=== PATIENT | female | born 1950 | race Caucasian/White ===

== ENCOUNTER 2020-01-13 04:21 | Emergency (ER) | payer MEDICARE, OTHER ==
[~2020-01-13] VITALS: Ht 154.9 cm; Wt 90.7 kg
--- OUTSIDE RECORDS SUMMARY | ~2020-01-13 | XMS | Encounter Summary ---
Demographics + + + | Address | [address] | | | [place] [address] | + + + | Home Phone | | + + + | Preferred Language | Unknown | + + + | Marital Status | | + + + | Islam Affiliation | 1077 | + + + | Race | Unknown | + + + | Ethnic Group | Unknown | + + + Author + + + | Author | [facility] | | | and Jimmyana | + + + | Organization | [facility] | | | and Jimmyana | + + + | Address | Unknown | + + + | Phone | Unavailable | + + + Support + + + + + | Name | Relationship | Address | Phone | + + + + + | Elen Brown | ECON | [address] | | | | | [place], [place] | | | | | [address] | | + + + + + | Hang Miller | ECON | [address] | | | | | [place], [place] | | | | | [address] | | + + + + + Care Team Providers + +------+ + | Care Full Roll Inspector Name | Role | Phone | + +------+ + PCP | Unavailable | + +------+ + Reason for Visit +---------+--------+ + | Reason | Onset | Comments | | | Date | | +---------+--------+ + | Results | 04/16/ | | | | 2012 | | +---------+--------+ + Encounter Details +--------+ + + + + | Date | Type | Department | Care Team | Description | +--------+ + + + + | 04/16/ | Telephone | [facility] | Bo Darling MD | Results | | 2012 | | GASTROENTEROLOGY | [address] [place] | | | | | [address] [place] | [address] [place] | | | | | [address] [place] | [address] | | | | | [address] | | | | | | [phone] | | | +--------+ + + + + Social History + +-------+ +--------+------+ | Tobacco Use | Types | Packs/Day | Years | Date | | | | | Used | | + +-------+ +--------+------+ | Never Assessed | | | | | + +-------+ +--------+------+ + + + | Sex Assigned at | Date Recorded | | | | + + + | Not on file | | + + + documented as of this encounter Miscellaneous Notes Telephone Encounter - Chikis Plummer RN - 04/16/2013 3:33 PM PDTNotified patient th at pathology on colon polyp negative. Dr Darling recommends next colonoscopy in 5 years. She reports she did well after the colonoscopy. documented in th is encounter Plan of Treatment Not on filedocumented as of this encounter Visit Diagnoses Not on filedocumented in this encounter"
--- OUTSIDE RECORDS SUMMARY | ~2020-01-13 | XMS | Encounter Summary ---
Demographics + + + | Address | [address] | | | [place] [address] | + + + | Home Phone | | + + + | Preferred Language | Unknown | + + + | Marital Status | | + + + | Jew Affiliation | 1077 | + + + | Race | Unknown | + + + | Ethnic Group | Unknown | + + + Author + + + | Author | [facility] | | | and Jimmyana | + + + | Organization | [facility] Go | | | and [...] [place], [place] | | | | | [address] | | + + + + + | Hang Miller | ECON | [address] | | | | | [place], [place] | | | | | [address] | | + + + + + Care Team Providers + +------+ + | Care Hoop Riveter Name | Role | Phone | + +------+ + PCP | Unavailable | + +------+ + Reason for Visit + +--------+ + | Reason | Onset | Comments | | | Date | | + +--------+ + | Colonoscopy | 02/19/ | | | | 2012 | | + +--------+ + Encounter Details +--------+ + + + + | Date | Type | Department | Care Team | Description | +--------+ + + + + | 02/19/ | Telephone | [facility] | Bo Darling MD | Colonoscopy | | 2012 | | GASTROENTEROLOGY | [address] [place] | | | | | [address] [facility] | [address] [place], [place] | | | | | [address] [place], [place] | [address] | | | | | [address] | | | | | | [phone] | | | +--------+ + + + [...] Telephone Encounter - Chikis Plummer RN - 02/19/2013 4:06 PM PDTColonoscopy is sche duled for 04/11/13 check in 0800. Prep order sent to [facility] [employer]. Mailed prep instructions and pt questionnaire. TTelephone Encounter - Deb Gallo - 02/19/2013 3:18 PM PDTPatient's Jorge A called i n to speak with Reji, please give him a call back on the home number. He has some Colonosco py questions for her. documen henry in this encounter Plan of Treatment Not on filedocumented as of this encounter Visit Diagnoses Not on filedocumented in this encounter"
--- OUTSIDE RECORDS SUMMARY | ~2020-01-13 | XMS | Encounter Summary ---
Demographics + + + | Address | [address] | | | [place] [address] | + + + | Home Phone | | + + + | Preferred Language | Unknown | + + + | Marital Status | | + + + | Mandaen Affiliation | 1077 | + + + | Race | Unknown | + + + | Ethnic Group | Unknown | + + + Author + + + | Author | [facility] | | | and Jimmyana | + + + | Organization | [facility] | | | and Jimmyana | [...] [place], [place] | | | | | [address] | | + + + + + | Hang Miller | ECON | [address] | | | | | [place], [place] | | | | | [address] | | + + + + + Care Team Providers + +------+ + | Care Clinical Unit Coordinator Name | Role | Phone | + +------+ + PCP | Unavailable | + +------+ + Reason for Visit + +--------+ + | Reason | Onset | Comments | | | Date | | + +--------+ + | Colonoscopy | 02/13/ | | | | 2012 | | + +--------+ + Encounter Details +--------+ + + + + | Date | Type | Department | Care Team | Description | +--------+ + + + + | 02/13/ | Telephone | [facility] | Bo Darling MD | Colonoscopy | | 2012 | | GASTROENTEROLOGY | [address], [place] | | | | | [address] [facility] | [address] [place], [place] | | | | | [address] [place], [place] | [address] | | | | | [address] | | | | | | [phone] | | | +--------+ + + + [...] Telephone Encounter - Chikis Plummer RN - 02/13/2013 10:34 AM PDTLeft message offeri ng colonoscopy only. Records here from [facility]. Screening, regular sedation. Any provid er. 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 documented in this encounter Plan of Treatment Not on filedocumented as of this encounter Visit Diagnoses Not on filedocumented in this encounter"
--- OUTSIDE RECORDS SUMMARY | ~2020-01-13 | XMS | Encounter Summary ---
Demographics + + + | Address | [address] | | | [place] [address] | + + + | Home Phone | | + + + | Preferred Language | Unknown | + + + | Marital Status | | + + + | Christian Affiliation | 1077 | + + + | Race | Unknown | + + + | Ethnic Group | Unknown | + + + Author + + + | Author | [facility] | | | and Jimmyana | + + + | Organization | [facility] | | | and Jimmyana | [...] [place], [place] | | | | | [address] | | + + + + + | Hang Miller | ECON | [address] | | | | | [place], [place] | | | | | [address] | | + + + + + Care Team Providers + +------+ + | Care Complementary Health Therapists Name | Role | Phone | + +------+ + PCP | Unavailable | + +------+ + Encounter Details +--------+ + + + + | Date | Type | Department | Care Team | Description | +--------+ + + + + | 05/08/ | Hospital | [facility] | Edgard Mckee, | | | 1997 - | Encounter | MED CTR MED ONC | [address] [facility] | | | | | [address] [place] | [place] | | | 05/12/ | | [place] [address] | [address] | | | 1997 | | [phone] | | | +--------+ + + + [...] + + documented as of this encounter Plan of Treatment Not on filedocumented as of this encounter Visit Diagnoses Not on filedocumented in this encounter"
--- OUTSIDE RECORDS SUMMARY | ~2020-01-13 | XMS | Encounter Summary ---
Demographics + + + | Address | [address] | | | [place] [address] | + + + | Home Phone | | + + + | Preferred Language | Unknown | + + + | Marital Status | | + + + | Holiness Affiliation | 1077 | + + + | Race | Unknown | + + + | Ethnic Group | Unknown | + + + Author + + + | Author | [facility] | | | and Jimmyana | + + + | Organization | [facility] | | | and Jimmyana | [...] [place], [place] | | | | | [address] | | + + + + + | Hang Miller | ECON | [address] | | | | | [place], [place] | | | | | [address] | | + + + + + Care Team Providers + +------+ + | Care Radiological Technologist Name | Role | Phone | + +------+ + PCP | Unavailable | + +------+ + Reason for Referral Evaluate & Treat (Routine) +--------+ + + + + + | Status | Reason | Specialty | Diagnoses / | Referred By | Referred To | | | | | Procedures | Contact | Contact | +--------+ + + + + + | Closed | Specialty | Gastroenterol | Diagnoses | Harri, | Harri, | | | Services | ogy | Special | Bo Reynoso MD | Bo Reynoso MD | | | Required | | screening | [address], | | | | | for | [place], [place] | [place] [address] | | | | | malignant | [address] [place] | [place], | | | | | neoplasms, | [place], [place] | [place] [address] | | | | | colon | [address] | Phone: | | | | | Procedures | Phone: | [phone] | | | | | [place] | [phone] | Fax: | | | | | COLONOSCOPY, | Fax: | [phone] | | | | | DIAGNOSTIC | [phone] | | | | | | [place] | | | | | | | COLONOSCOPY, | | | | | | | BIOPSY [place] | | | | | | | COLONOSCOPY, | | | | | | | REMV | | | | | | | NIC TANG | | | +--------+ + + + + + Reason for Visit + +--------+ + [...] + + | 02/13/ | Telephone | [facility] | Bo Darling MD | Colonoscopy | | 2012 | | GASTROENTEROLOGY | [address], [place] | | | | | [address] [place] | [address] [place] | | | | | [address] [place] | [address] | | | | | [address] | | | | | | [phone] | | | +--------+ + + + [...] Telephone Encounter - Chikis Plummer RN - 02/15/2013 1:48 PM PDTSpoke with patient and scheduled colonoscopy for 04/11/13 per her request. Uses [facility] in [place]. Erlin nixon lew prachi. Has provideile insurance.Electronically signed by Chikis Plummer RN at 2:18 PM PDTTelephone Encounter - Long Galan - 02/13/2013 3:15 PM PDTPatien t returned Reji' call regarding scheduling procedure. Patient will be available today after 4:30pm. It is also okay to schedule with patient's because he knows her work lorri le. documented in this e ncounter Plan of Treatment + + +--------+ + + | Name | Type | Priori | Associated Diagnoses | Order Schedule | | | | ty | | | + + +--------+ + + | Ambulatory referral | Outpatient | Routin | Special screening | Expected: | | to Gastroenterology | Referral | e | for malignant | 04/11/2013, Expires: | | | | | neoplasms, colon | 02/15/2014 | + + +--------+ + + documented as of this encounter Visit Diagnoses + + | Diagnosis | + + | Special screening for malignant neoplasms, colon - Primary | + + documented in this encounter"
--- OUTSIDE RECORDS SUMMARY | ~2020-01-13 | XMS | Clinical Summary ---
Demographics + + + | Address | [address] | | | [place] [address] | + + + | Home Phone | | + + + | Preferred Language | Unknown | + + + | Marital Status | | + + + | Advent Affiliation | 1077 | + + + | Race | Unknown | + + + | Ethnic Group | Unknown | + + + Author + + + | Author | [facility] | | | and Jimmyana | + + + | Organization | [facility] | | | and Jimmyana | + + + | Address | Unknown | + + + | Phone | Unavailable | + + + Support + + + + + | Name | Relationship | Address | Phone | + + + + + | Elen Brown | ECON | [address] | | | | | [place], [place] | | | | | [address] | | + + + + + | Hang Miller | ECON | [address] | | | | | [place], [place] | | | | | [address] | | + + + + + Care Team Providers + +------+ + | Care Site Physician Name | Role | Phone | + +------+ + PCP | Unavailable | + +------+ + Allergies Not on File Medications Not on file Active Problems Not on file Social History + +-------+ +--------+------+ | Tobacco [...] on file | | + + + Last Filed Vital Signs Not on file Plan of Treatment + + +-------+ + | Health Maintenance | Due Date | Last | Comments | | | | Done | | + + +-------+ + | Vaccine: | | | | | Dtap/Tdap/Td (1 - | 9 | | | | Tdap) | | | | + + +-------+ + | Vaccine: Zoster (1 | | | | | of 2) | 0 | | | + + +-------+ + | Breast Cancer | | | | | Screening | 5 | | | + + +-------+ + | Vaccine: | | | | | Pneumococcal 65+ (1 | 5 | | | | of 1 - PPSV23) | | | | + + +-------+ + | Vaccine: Influenza | | | | | (#1) | 0 | | | + + +-------+ + Results Not on filefrom Last 3 Months Insurance + +--------+ +--------+ +---------+------+ | Payer | Benefi | Subscriber | Effect | Phone | Address | Type | | | t Plan | ID | loyd | | | | | | / | | Dates | | | | | | Group | | | | | | + +--------+ +--------+ +---------+------+ | [facility] [employer] | PHP | [id number] | 09/18/19 | [phone] | | PPO | | PLAN | PEBB | | 11-Pre | 5 | | | | | PROV | | sent | | | | | | CHOICE | | | | | | + +--------+ +--------+ +---------+------+ + +--------+ +--------+ + + | Guarantor Name | Accoun | Relation to | Date | Phone | Billing Address | | | t Type | Patient | of | | | | | | | | | | + +--------+ +--------+ + + | Des Miller | Person | Self | [birth year] | [address] | | | al/Fam | | 1950 | [phone] | [place] [address] | | | brody | | | 1 (Home) | | + +--------+ +--------+ + + Advance Directives + + + + + | Type | Date Recorded | Patient | Explanation | | | | Steel Cutter | | + + + + + | Power of | | | | | Vocational Rehabilitation Technician | | | | + + + + + | Advance | | | | | Directive | | | | + + + + +"
--- OUTSIDE RECORDS SUMMARY | ~2020-01-13 | XMS | Encounter Summary ---
Demographics + + + | Address | [address] | | | [place] [address] | + + + | Home Phone | | + + + | Preferred Language | Unknown | + + + | Marital Status | | + + + | Muslim Affiliation | 1077 | + + + | Race | Unknown | + + + | Ethnic Group | Unknown | + + + Author + + + | Author | [facility] | | | and Jimmyana | + + + | Organization | [facility] | | | and [...] [place], [place] | | | | | [address] | | + + + + + | Hang Miller | ECON | [address] | | | | | [place], [place] | | | | | [address] | | + + + + + Care Team Providers + +------+ + | Care Building Wrecker Name | Role | Phone | + [...] + + | 02/19/ | Telephone | [facility] | Bo Darling MD | Colonoscopy | | 2012 | | GASTROENTEROLOGY | [address], [place] | | | | | [address] [facility] | [address] [place], [place] | | | | | [address] [place], [place] | [address] | | | | | [address] | | | | | | [phone] | | | +--------+ + + + [...] Encounter - Chikis Plummer RN - 02/19/2013 3:12 PM PDTSpoke with spouse. He will have pt call to schedule colonoscopy. documented in this encounter Plan of Treatment Not on filedocumented as of this encounter Visit Diagnoses Not on filedocumented in this encounter"
--- OUTSIDE RECORDS SUMMARY | ~2020-01-13 | XMS | Encounter Summary ---
Demographics + + + | Address | [address] | | | [place] [address] | + + + | Home Phone | | + + + | Preferred Language | Unknown | + + + | Marital Status | | + + + | Zoroastrianism Affiliation | 1077 | + + + | Race | Unknown | + + + | Ethnic Group | Unknown | + + + Author + + + | Author | [facility] | | | and Jimmyana | + + + | Organization | [facility] | | | and Jimmyana [...] [place], [place] | | | | | [address] | | + + + + + | Hang Quintanilla | ECON | [address] | | | | | [place], [place] | | | | | [address] | | + + + + + Care Team Providers + +------+ + | Care Surveying Crew Rodman Name | Role | Phone | + +------+ + PCP | Unavailable | + +------+ + Encounter Details +--------+ + + + + | Date | Type | Department | Care Team | Description | +--------+ + + + + | 04/11/ | Hospital | [facility] | Bo Darilng MD | | | 2013 | Encounter | MED CTR MP INTRA OP | [address], [place] | | | | | [address] | [address] [place], [place] | | | | | [place] | [address] | | | | | [address] | | | | | | [phone] | | | +--------+ + + + [...] documented as of this encounter Miscellaneous Notes Op Note - Bo Darling MD - 04/11/2013 10:00 [place] [address] Patient Name: DES QUINTANILLA Provider: Bo Darling MD Unit #: [id number] Location: [facility] : 1950 Patient Name: Des Quintanilla Gender: F Procedure Date: 04/11/2013 10:00 AM Date of : 1950 Age: 62 Admit Type: Outpatient Room: Endo Room 1 Note Status: Finalized Attending MD: Bo Darling MD Procedure: Colonoscopy Indications: Screening for colorectal malignant neoplasm Providers: Bo Darling MD, Hugo Hoffmann RN, Staci Mclcure, Brazer Helper Induction Referring MD: Reji Rios MD Medicines: Midazolam 2 mg IV, Meperidine 100 mg IV, Oxygen 4 liters/min nasocannula Complications: No immediate complications. Procedure: - Prior to the procedure, a History and Physical was performed, and patient medications, allergies and sensitivities were reviewed. The patient's tolerance of previous anesthesia was reviewed. - The risks and benefits of the procedure and the sedation options and risks were discussed with the patient. All questions were answered and informed consent was obtained. - Patient identification and proposed procedure were verified prior to the procedure by the physician, the nurse and the service technician copier. The procedure was verified in the endoscopy suite. - Airway Examination: normal oropharyngeal airway and neck mobility and Mallampati Class III (part of the uvula and soft palate visualized). - Mental Status Examination: alert and oriented. - CV Examination: normal. - Respiratory Examination: clear to auscultation. - ASA Grade Assessment: II - A patient with mild systemic disease. - After reviewing the risks and benefits, the patient was deemed in satisfactory condition to undergo the procedure. - The anesthesia plan was to use moderate sedation/analgesia (conscious sedation). - Immediately prior to administration of medications, the patient was re-assessed for adequacy to receive sedatives. - The heart rate, respiratory rate, oxygen saturations, blood pressure, adequacy of pulmonary ventilation, and response to care were monitored throughout the procedure. - The physical status of the patient was re-assessed after the procedure. After I obtained informed consent, the scope was passed under direct vision. Throughout the procedure, the patient's blood pressure, pulse, and oxygen saturations were monitored continuously. The endoscope was introduced through the anus and advanced to the cecum, identified by the appendiceal orifice, ileocecal valve and palpation. The colonoscopy was performed without difficulty. The patient tolerated the procedure well. The quality of the bowel preparation was good. Findings: The perianal and digital rectal examinations were normal. Pertinent negatives include normal sphincter tone and no palpable rectal lesions. Multiple small and large-mouthed diverticula were found in the sigmoid colon. There was narrowing of the colon in association with the diverticular opening. There was evidence of diverticular spasm. There was evidence of an impacted diverticulum. There was no evidence of diverticular bleeding. A sessile, non-bleeding polyp was found in the proximal sigmoid colon. The polyp was 15 mm in size. The polyp was removed with a hot snare. Resection and retrieval were complete. One hemostatic clip was successfully placed. There was no bleeding during, and at the end, of the procedure. Verification of patient identification for the specimen was done. Estimated blood loss: none. The exam was otherwise without abnormality.The retroflexed view of the distal rectum and anal verge was normal and showed no anal or rectal abnormalities. Impression: - Moderate diverticulosis in the sigmoid colon. There was narrowing of the colon in association with the diverticular opening. There was evidence of diverticular spasm. There was evidence of an impacted diverticulum. There was no evidence of diverticular bleeding. - One 15 mm, non-bleeding polyp in the proximal sigmoid colon. Resected and retrieved. Due to the close proximetry of the polyp to the ostia of a diverticulum a hemoclip was placed across the base of the removed polyp. - The examination was otherwise normal. Recommendation: - Discharge patient to home (ambulatory). - Mechanical soft diet for 3 days. - Continue present medications. - No aspirin, ibuprofen, naproxen, or other non-steroidal anti-inflammatory drugs for 7 days after polyp removal. - Await pathology results. - Repeat colonoscopy for surveillance based on pathology results. - Return to primary care physician as previously scheduled. - Telephone GI clinic for pathology results in 1 week. - Telephone GI clinic if symptomatic. Bo Darling MD Signed Date: 04/11/2013 10:42 AM Number of Addenda: 0 Note initiated on 04/11/2013 10:01 AM Scope Withdrawal Time: 11 minutes 39 seconds Total Procedure Duration Time: 20 minutes 42 seconds Bo Darling MD [id number] documented in this e ncounter Plan of Treatment Not on filedocumented as of this encounter Visit Diagnoses Not on filedocumented in this encounter"
--- OUTSIDE RECORDS SUMMARY | ~2020-01-13 | XMS | Encounter Summary ---
Demographics + + + | Address | [address] | | | [place] [address] | + + + | Home Phone | | + + + | Preferred Language | Unknown | + + + | Marital Status | | + + + | Advent Affiliation | 1077 | + + + | Race | Unknown | + + + | Ethnic Group | Unknown | + + + Author + + + | Author | [facility] | | | and Jimmyana | + + + | Organization | [facility] | | | and Jimmyana [...] [place], [place] | | | | | [address] | | + + + + + | Hang Miller | ECON | [address] | | | | [place], [place] | | | | | [address] | | + + + + + Care Team Providers + +------+ + | Care Deputy Coroner Investigator Name | Role | Phone | + +------+ + PCP | Unavailable | + +------+ + Encounter Details +--------+ + + + + | Date | Type | Department | Care Team | Description | +--------+ + + + + | 05/14/ | Hospital | [facility] | | | | 1997 - | Encounter | MED CTR MED ONC | | | | | | [address] | | | | 05/17/ | | [place] [address] | | | | 1997 | | [phone] | | | +--------+ + + + [...]
[~2020-01-13 04:21] MED LIST: AMLODIPINE BESY10 MG PO; CLONIDINE HCL0.1 MG PO; FAMOTIDINE40 MG PO; HYDROXYZINE HCL50 MG PO; LISINOPRIL20 MG PO; NORCO 5-325 TA1 EACH PO; REQUIP2 MG PO; SERTRALINE HCL100 MG PO; TRAZODONE HCL50 MG PO; ZYRTEC10 M3 PO
[2020-01-13] MEDS ORDERED: ZOLOFT100 MG PO (04:46)
[2020-01-13] MEDS ORDERED: LISINOPRIL10 MG PO (04:46)
[2020-01-13] MEDS ORDERED: MOTRIN IB200 MG NG (04:47)
[2020-01-13] MEDS ORDERED: CIPRO500 MG PO (06:22)
[2020-01-13] MEDS ORDERED: FLAGYL500 MG PO (06:22)
[2020-01-13] MEDS ORDERED: NORCO 5-325 TA1 EACH PO (06:22)
== END 2020-01-13 06:39 | disposition home or self-care (01) ==
LOC: ED 04:21
DX: K57.32 Diverticulitis of large intestine without perforation or abscess without bleeding (principal); I10 Essential (primary) hypertension; Z91.09 Other allergy status, other than to drugs and biological substances; Z79.899 Other long term (current) drug therapy
CPT/HCPCS: 74177; 80053; 81001; 83690; 85025; 96361; 99284-25; J2405; J7030; Q9967

== ENCOUNTER 2021-01-11 03:11 | Emergency (ER) | payer MEDICARE, OTHER ==
[~2021-01-11] VITALS: Ht 154.9 cm; Wt 90.7 kg
[~2021-01-11 03:11] MED LIST changes: +CIPRO500 MG PO; +FLAGYL500 MG PO; +LISINOPRIL10 MG PO; +MOTRIN IB200 MG NG; +ZOLOFT100 MG PO
[2021-01-11] MEDS ORDERED: FLAGYL500 MG PO (06:20)
[2021-01-11] MEDS ORDERED: CIPRO500 MG PO (06:20)
[2021-01-11] MEDS ORDERED: HYDROCODON-ACE1 EA10 PO (06:20)
[2021-01-11] MEDS ORDERED: ZOFRAN4 MG PO (06:20)
== END 2021-01-11 06:50 | disposition home or self-care (01) ==
LOC: ED 03:11
DX: R10.30 Lower abdominal pain, unspecified (principal); I10 Essential (primary) hypertension; Z91.013 Allergy to seafood; Z88.8 Allergy status to other drugs, medicaments and biological substances; Z79.899 Other long term (current) drug therapy
CPT/HCPCS: 74176; 74177; 80053; 81001; 83690; 85025; 96374; 96375; 99284-25; J1170; J2405; J7030; Q9967

== ENCOUNTER 2024-06-15 05:51 | Inpatient (IN) | payer MEDICARE, OTHER ==
[~2024-06-15] VITALS: Ht 154.9 cm; Wt 94.8 kg
[~2024-06-15 05:51] MED LIST changes: -AMLODIPINE BESY10 MG PO; +HYDROCODON-ACE1 EA10 PO; -LISINOPRIL10 MG PO; +NORVASC5 MG PO; -REQUIP2 MG PO; +ROPINIROLE HCL2 MG PO; +ZESTRIL20 MG PO; +ZOFRAN4 MG PO
[2024-06-15] MEDS ORDERED: ondansetron HCL 4 MG/2 ML VIAL IV ONE ×2 (06:15→09:15)
[2024-06-15 06:24] LABS: BASOPHILS 0.3 % (0-2); HEMATOCRIT 47.4 % (35.0-50.0); HEMOGLOBIN 15.8 g/dL (12.0-18.0); LYMPHOCYTES 11.8 % (24-44); MCH 29.3 (27-36); MCHC 33.4 g/dl (30-36); MCV 87.8 fl (81-99); MONOCYTES 13.2 % (0-12); NEUTROPHILS 74.7 % (39-80); PLATELET COUNT 446 K/uL (140-440); RBC 5.39 M/ul (4.3-5.7); RDW 14.3 (10.5-15.0)
[2024-06-15] MEDS ORDERED: DICYCLOMINE HCL20 MG PO (06:38)
[2024-06-15] MEDS ORDERED: LEVOTHYROXINE100 MCG PO (06:38)
[2024-06-15] MEDS ORDERED: OMEPRAZOLE40 MG PO (06:39)
[2024-06-15] MEDS ORDERED: TRAZODONE HCL50 MG PO (06:39)
[2024-06-15 06:41] LABS: ALBUMIN 3.7 g/dL (3.4-5.0); ALBUMIN/GLOBULIN RATIO 0.93 (1.1-2.4); ANION GAP 17.6 (7-21); BILIRUBIN, TOTAL 0.8 ng/dL (0.2-1.0); BUN/CREATININE RATIO 38.7 (6.0-28.6); CALCIUM 9.4 mg/dL (8.5-10.1); CREATININE, SERUM 1.24 mg/dL (0.55-1.02); MAGNESIUM 1.9 mg/dL (1.8-2.4); POTASSIUM 3.6 mmol/L (3.5-5.1); PROTEIN, TOTAL 7.7 g/dL (6.4-8.2)
[2024-06-15] MEDS ORDERED: SODIUM CHLORIDE 0.9% 1,000 ML IV ONE (07:00)
[2024-06-15] MEDS ORDERED: droPERidol 5 MG/2 ML VIAL IV PRN (11:00)
[2024-06-15] MEDS ORDERED: CEFTRIAXONE/SODIUM CHLORIDE 2 GM/100 ML PIGGYBACK IV SCH (12:56)
[2024-06-15] MEDS ORDERED: PANTOPRAZOLE SODIUM 40 MG/10 ML VIAL IV SCH (12:57)
[2024-06-15] MEDS ORDERED: ENOXAPARIN SODIUM 40 MG/0.4 ML SYR SUB-Q SCH (12:57)
[2024-06-15] MEDS ORDERED: ACETAMINOPHEN 325 MG TAB PO PRN (13:00)
[2024-06-15] MEDS ORDERED: DEXTROSE 5% - LACTATED RINGERS 1,000 ML IV SCH (13:00)
[2024-06-15] MEDS ORDERED: ondansetron HCL 4 MG/2 ML VIAL IV PRN (13:00)
[2024-06-15] MEDS ORDERED: ACETAMINOPHEN 650 MG SUPP PR PRN (13:00)
[2024-06-15] MEDS ORDERED: PROCHLORPERAZINE EDISYLATE 10 MG/2 ML VIAL IV PRN (13:00)
[2024-06-15] MEDS ORDERED: HYDROmorphone HCL 1 MG/ML SYR IV PRN (13:00)
--- NOTE | 2024-06-15 13:45 | NUR ---
PT TO ROOM FROM ER. REPORT RECEIVED FROM JACOB VERDUZCO. PT HAS NG TO LIWS DRAINING BROWN FLUID. (Lindsay) PHILIPPE). PT C/O RESTLESS LEGS AND HAS HX OF RESTLESS LEG SYNDROME. ROOM ORIENTATION COMPLETE. DAUGHTER IN ROOM. PT DENIES PAIN AT THIS TIME. CALL LIGHT WITHIN REACH.
[2024-06-15 13:57] VITALS: BP 183/81
[2024-06-15] MEDS ORDERED: ENALAPRILAT DIHYDRATE 1.25 MG/ML VIAL IV SCH (14:00)
--- NOTE | 2024-06-15 15:15 | NUR ---
PT BACK IN BED AFTER USING RESTROOM, TOLERATED WELL. NO REQUESTS AT THIS TIME. CALL LIGHT WITHIN REACH.
[2024-06-15] MEDS ORDERED: ATORVASTATIN CA20 MG PO (15:30)
--- NOTE | 2024-06-15 16:07 | NUR ---
ASSESSMENT COMPLETED AT 1410
--- NOTE | 2024-06-15 16:26 | NUR ---
ADMISSION COMPLETE. PHARMACY IN TO VISIT WITH PT. CALL LIGHT WITHIN REACH.
--- NOTE | 2024-06-15 16:42 | NUR ---
MED REC COMPLETE
[2024-06-15] MEDS ORDERED: LORazepam 2 MG/ML VIAL IV PRN (16:45)
[2024-06-15] MEDS ORDERED: LABETALOL HCL 100 MG/20 ML MDV IV PRN (16:45)
[2024-06-15 17:17] VITALS: BP 147/74
[2024-06-15 18:29] VITALS: BP 162/75
--- NOTE | 2024-06-15 19:45 | NUR ---
REPORT RECEIVED FROM DAY SHIFT RN. PT SITTING IN RECLINER ALERT AND ORIENTED. SBA TO BED. NO FURTHER NEEDS. WHITE BOARD UPDATED. CALL LIGHT IN REACH.
[2024-06-15 20:13] VITALS: BP 156/77
--- NOTE | 2024-06-15 20:14 | NUR ---
SCHEDULED MED PROVIDED. IV WNL. IV FLUIDS INFUSING PER ORDER. NG @ LIS. PT STATES NO OTHER NEEDS AT THIS TIME. CALL LIGHT IN REACH.
[2024-06-15 20:30] VITALS: BP 156/77
--- NOTE | 2024-06-15 21:33 | NUR ---
EVENING ASSESSMENT COMPLETE. PRN FOR RESTLESS LEGS ADMIN PER EMAR. PT DENIES PAIN OR NAUEA. NGT TO LIWS WITH SCANT AMOUNT BROWN DRAINAGE. HOB ELEVATED. BOWEL TONES ACTIVE. ABD DISTENDED AND FIRM. SCD'S IN PLACE. ORAL CARE SUPPLIES PROVIDED. PT DENIES QUESTIONS OR CONCERNS. CALL LIGHT IN REACH. BED ALARM FOR SAFETY.
--- NOTE | 2024-06-15 23:55 | NUR ---
CREDIT VERIFICATION CLERK TOOK PT TO BATHROOM AND BACK TO BED. CREDIT VERIFICATION CLERK LEFT THE ROOM WITH BED ALARM ON, NG CONNECTED TO SUCTION, AND CALL LIGHT WITHIN REACH.
[2024-06-16] VITALS (8 sets, daily range): BP systolic 138–165; BP diastolic 65–86
--- NOTE | 2024-06-16 02:15 | NUR ---
SCHEDULED MEDS ADMIN PER EMAR. PRN ADMIN FOR C/O RESTLESS LEGS. ASSESSMENT COMPLETE. BOWEL TONES ACTIVE. ABD FIRM AND DISTENDED. PT REPORTS SMALL AMOUNT OF FLATUS. NGT TO LIWS WITH BROWN DRAINAGE. SCD'S IN PLACE. NO FURTHER NEEDS. BED ALARM FOR SAFETY. CALL LIGHT IN REACH.
--- NOTE | 2024-06-16 03:53 | NUR ---
PT RESTING IN BED WITH EYES CLOSED. HOB ELEVATED. RESPIRATIONS EVEN. CALL LIGHT IN REACH. BED ALARM FOR SAFETY.
[2024-06-16 05:19] LABS: BASOPHILS 0.1 % (0-2); EOSINOPHILS 0.5 % (0-6); HEMATOCRIT 39.2 % (35.0-50.0); HEMOGLOBIN 13.2 g/dL (12.0-18.0); LYMPHOCYTES 21.5 % (24-44); MCH 29.4 (27-36); MCHC 33.7 g/dl (30-36); MCV 87.2 fl (81-99); MONOCYTES 17.3 % (0-12); NEUTROPHILS 60.6 % (39-80); PLATELET COUNT 314 K/uL (140-440)
[2024-06-16 05:34] LABS: ANION GAP 9.9 (7-21); BUN/CREATININE RATIO 32.07 (6.0-28.6); CALCIUM 8.3 mg/dL (8.5-10.1); CREATININE, SERUM 1.06 mg/dL (0.55-1.02); MAGNESIUM 1.9 mg/dL (1.8-2.4); PHOSPHORUS, INORGANIC 2.6 mg/dL (2.5-4.9); POTASSIUM 2.9 mmol/L (3.5-5.1)
--- NOTE | 2024-06-16 07:24 | CONS ---
[facility] [address] [place], [place] [address] Signed DATE OF CONSULTATION: 06/15/2024 CHIEF COMPLAINT: Vomiting. 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 She said for at least a year now she is having progressive difficulties with her bowel movements and having pain in the left side. She vomited 10 times yesterday and finally went to the [facility]. Her viral panel was negative. They sent her over to the emergency room. Here in the emergency room, her white count is 10 and her abdomen is extremely distended and firm but no peritonitis. An NG tube was replaced and she has had out green bilious fluid. She is sitting on the bedside commode unable to pass any flatus or stool. Her sister is with her. I have been asked to see her as a local general surgeon on-call. PAST MEDICAL HISTORY: Hypertension, small hiatal hernia, diverticulosis, osteoarthritis of the hips, degenerative disk disease, and obesity. Also, restless legs syndrome and depression. Also hypothyroid. PAST SURGICAL HISTORY: Cholecystectomy for gallstones, partial hysterectomy for painful periods and endometriosis after her daughter was born. She had a . SOCIAL HISTORY: She does not smoke or drink. She is , but her is disabled and does not get around well. She has one daughter. Briana Paez is her primary care provider. They prefer the [facility]. Her sister is Opal Dickson at [phone]. 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 FAMILY HISTORY: Mom had two strokes. REVIEW OF SYSTEMS: She had 10 systems reviewed and the pertinent findings are in the above. ALLERGIES: Shellfish and iodine. MEDICATIONS: 1. Requip. 2. Amlodipine. Electronically Signed By: GERMÁN VASQUEZ MD 06/16/24 0724 PATIENT NAME: DES QUINTANILLA CONSULTATION DATE OF : 50 REPORT #: [id number] PHYSICIAN: GERMÁN VASQUEZ MD PCP: BRIANA PAEZ PA-C REPORT IS CONFIDENTIAL AND NOT TO BE RELEASED WITHOUT AUTHORIZATION [facility] [address] [place], [place] [address] Signed 3. Zyrtec. 4. Sertraline. 5. Lisinopril. 6. Ibuprofen. 7. Omeprazole. 8. Dicyclomine. 9. Levothyroxine. 10. Trazodone. PHYSICAL EXAMINATION: VITAL SIGNS: Her blood pressure is 183/82, heart rate is 84, respiratory rate 20, temperature is 98.1. She is 99% on room air. She is 5 feet 1 inch tall at 89 kg with a body mass index of 37. GENERAL: Des is a 74-year-old female sitting on her bedside commode in the ER. She has no increased work of breathing. EKG showed normal sinus rhythm. ABDOMEN: Her abdomen is very distended and firm, but nontender. She has an NG tube in place with bilious fluid. LABORATORY DATA: Her white blood cell count is 10.0, hemoglobin 15, neutrophils 74. BUN 48, creatinine 1.24. Liver function tests are negative. Albumin is 3.7, lipase 25. EKG showed normal sinus rhythm. RADIOGRAPHIC STUDIES: CT scan of the abdomen and pelvis is reviewed, the report only. Images were not available. She has a small hiatal hernia and a transition point in her distal ascending colon with air-fluid levels in the colon and small bowel. She has diverticulosis. There is no evidence of any metastatic disease. ASSESSMENT AND PLAN: Des is a 74-year-old obese female, who is a retired registered nurse. She has had trouble now for over a year with her GI tract. She has declined colonoscopies. Her sister had Cologuard which was negative. She is now presenting with a large bowel obstruction in the distal descending colon. She is dehydrated with renal insufficiency. We are going to admit her and continue the NG tube with IV fluids and repeat the labs in the morning. She will likely need surgery tomorrow, most likely a colostomy to decompress the bowel. We could attempt to try to put the colonoscope up this lesion, but then again we can put her through a bowel prep as she is currently. We will have to reassess this in the morning. I have discussed this with Des and her sister. They have expressed understanding and agreed with the above plan. We will also have our medical service see her as well. Electronically Signed By: GERMÁN VASQUEZ MD 06/16/24 0724 PATIENT NAME: DES QUINTANILLA CONSULTATION DATE OF : 50 REPORT #: [id number] PHYSICIAN: GERMÁN VASQUEZ MD PCP: BRIANA PAEZ PA-C REPORT IS CONFIDENTIAL AND NOT TO BE RELEASED WITHOUT AUTHORIZATION [address] [address] Signed Germán Vasquez MD ALB/MODL /[id number] cc: SILVESTRE Adrian MD Copies: BRIANA PAEZ PA-C, ANDREW L MD ~ Electronically Signed By: GERMÁN VASQUEZ MD 06/16/24 0724 PATIENT NAME: DES QUINTANILLA CONSULTATION DATE OF : 50 REPORT #: [id number] PHYSICIAN: GERMÁN VASQUEZ MD PCP: BRIANA PAEZ PA-C REPORT IS CONFIDENTIAL AND NOT TO BE RELEASED WITHOUT AUTHORIZATION
[2024-06-16] MEDS ORDERED: POTASSIUM CHLORIDE 40 MEQ,LIDOCAINE HCL 1% 40 MG in DEXTROSE 5% 250 ML IV ONE (09:00)
[2024-06-16] MEDS ORDERED: metroNIDAZOLE/SODIUM CHLORIDE 500 MG/100 ML PIGGYBACK IV SCH (09:00)
[2024-06-16] MEDS ORDERED: ENOXAPARIN SODIUM 40 MG/0.4 ML SYR SUB-Q SCH (09:10)
[2024-06-16] MEDS ORDERED: MAGNESIUM SULFATE 2 GM/50 ML BAG IV ONE (09:15)
--- NOTE | 2024-06-16 09:39 | NUR ---
AM ASSESSMENT COMPLETE - PT UP TO BATHROOM TO VOID. PT PROVIDED WARM SOAPY WASHCLOTHS IN BATHROOM FOR SPONGE BATH, SHAMPOO CAP AND NEW GOWN AND LINEN. PT STEADY ON FEET WITH AMBULATION. PT REPORTS NAUSEA AFTER AMBULATION. PT PASSING GAS. URINE REMAINS CONCENTRATED. NGT LIS WITH BROWN BILE IN CANISTER. MD IN ROOM DISCUSSING SURGERY PLAN OF CARE.
--- NOTE | 2024-06-16 10:59 | NUR ---
PT REQUESTS PRN FOR PAIN - RESTLESS LEGS ARE BOTHERING PT THE MOST.
--- NOTE | 2024-06-16 13:19 | NUR ---
PT COMPLAINS OF NAUSEA AGAIN, COMPAZINE ADMINISTERED. PRN FOR PAIN ALSO REQUESTED. PT USING CALL LIGHT APPROPRIALTY AND STEADY ON FEET AMBULATING TO BATHROOM.
[2024-06-16] MEDS ORDERED: LABETALOL HCL 20 MG/4 ML VIAL IV PRN (13:30)
--- NOTE | 2024-06-16 15:10 | NUR ---
PM ASSESSMENT COMPLETE - UNCHANGED. VS STABLE.
--- NOTE | 2024-06-16 17:22 | NUR ---
In for rounding. Pt is up in chair, several family members in room. Pt is A&O, BLE elevated, IVF and IV abx infusing on IVP. Pt states he was able to eat soup and ice cream and states that he feels pretty good, no c/o nausea or increased pain. Pt denies needs at this time.
--- NOTE | 2024-06-16 17:34 | NUR ---
PATIENT REPOSITIONED IN BED. VITALS AND I/O'S COMPLETED. NO GASTRIC CONTENTS DRAINED SINCE LAST CHECK. PT HAS COMPLAINTS OF NAUSEA, NURSE NOTIFIED. PT HAS NO OTHER REQUESTS AT THIS TIME. CALL LIGHT WITHIN REACH.
--- NOTE | 2024-06-16 18:58 | NUR ---
RN IN ROOM TO TROUBLESHOOT NGT - PT COMPLAINED OF SUDDEN SEVERE NAUSEA WHICH SHE HAS NOT EXPERIENCED ALL DAY. NGT NOTED TO NOT HAVE ANY OUTPUT FOR LAST 4HRS. AIR BOLUS AND WATER BOLUS WITH LARGE IRRIGATION SYRINGE WITHOUT ANY SIGNIFICANT RETURN OF GASTRIC CONTENTS. TUBE PULLED BACK APPORX 6 INCHES AFTER REVIEWING PLACEMENT XR THAT SHOWS MULTIPLE LOOPS. PT REPOSISTIONED TO ALL ANGLES AND AMBULATED IN ROOM. NAUSEA NOT IMPROVED AND NGT WITHOUT NOTICIBLE MOVEMENT.
--- NOTE | 2024-06-16 19:48 | NUR ---
REPORT RECEIVED FROM DAY SHIFT RN. PT LYING IN BED RESTING WITH EYES CLOSED. RESPIRATIONS EVEN. CALL LIGHT IN REACH. WHITE BOARD UPDATED. BED ALARM FOR SAFETY.
--- NOTE | 2024-06-16 21:06 | NUR ---
PT RESTING WITH EYES CLOSED. AWAKENS TO VOICE. EVENING ASSESSMENT COMPLETE. SCHEDULED MEDS ADMIN PER EMAR. PT DENIES PAIN OR NAUSEA. NGT PATENT WITH GREEN DRAINAGE. BOWEL TONES ACTIVE. PT REPORTS "SOME" FLATUS. ABD FIRM AND DISTENDED. PT REPORTS DISTENTION IMPROVED. ASSISTED PT TO REPOSITION IN BED. HOB ELEVATED. SCD'S IN PLACE. PT DENIES FURTHER NEEDS. CALL LIGHT IN REACH. BED ALARM FOR SAFETY.
--- NOTE | 2024-06-16 21:29 | NUR ---
PATIENT CALLED AND REPORTED NAUSEA, PRN MEDICATION GIVEN PER ORDER. PATIENT UP TO BR W/TRAFFIC TECHNICIAN. NO FURTHER NEEDS FROM THIS RN NOTED. TRAFFIC TECHNICIAN REMAINS IN ROOM WITH PATIENT.
--- NOTE | 2024-06-16 22:54 | NUR ---
PT REPORTS RESTLESS LEG PAIN 4/10 AND NAUSEA. PRN FOR PAIN AND N/V ADMIN PER EMAR. NGT FLUSHED WITH 30 ML TAP WATER. IMMEDIATE RETURN OF GREEN DRAINAGE NOTED. PT NOTED TO BE FLUSHED. PT REPORTS SHE FLUSHES "VERY EASILY" AND BELIEVES IT IS DUE TO PAIN IN HER LEGS, MOSTLY THE LEFT ONE. PT REPORTS PAIN IS CHRONIC. EXTRA BLANKETS REMOVED PER PT REQUEST. PERSONAL FAN IN USE, COOL WASHCLOTH PROVIDED. ASSISTED PT TO REPOSITION IN BED. HOB ELEVATED 30 DEGREES. BLOOD SUGAR CHECK 105. PT REPORTS SX IMPROVED AFTER DREDGE DECKHAND. NO FURTHER NEEDS AT THIS TIME. CALL LIGHT IN REACH.
[2024-06-17] VITALS (10 sets, daily range): BP systolic 132–168; BP diastolic 66–83
--- NOTE | 2024-06-17 00:18 | NUR ---
IV ALARMING. PATIENTS IV COMPLETED. NEW BAG OF IV FLUID INFUSING PER ORDER. PATIENT IS RESTING IN BED WITH EYES CLOSED, RR 16. NG TO LWIS. NAD NOTED. CALL LIGHT IN REACH.
--- NOTE | 2024-06-17 02:09 | NUR ---
CALL LIGHT ANSWERED. PT REPORTS NAUSEA. PRN N/V ADMIN PER EMAR. PT UP TO BR WITH SBA TO VOID. GAIT STEADY. BACK TO BED. REPORTS BLE PAIN 09/26. PRN FOR PAIN ADMIN PER EMAR. SCHEDULED BP MEDS ADMIN. NGT SLOW TO DRAIN, ADVANCED APPROX 4 INCHES. THIS RN ABLE TO AUSCULTATE AIR BOLUS IN ABD. BACK TO LIWS WITH THICK GREEN DRAINAGE. HOB 30 DEGREES. ASSISTED PT TO REPOSITION. NO FURTHER NEEDS. BED ALARM FOR SAFETY. CALL LIGHT IN REACH.
--- NOTE | 2024-06-17 03:44 | NUR ---
PT RESTING IN BED WITH EYES CLOSED. RESPIRATIONS EVEN. CALL LIGHT IN REACH.
[2024-06-17 05:26] LABS: BASOPHILS 0.3 % (0-2); EOSINOPHILS 1.5 % (0-6); HEMATOCRIT 37.2 % (35.0-50.0); HEMOGLOBIN 12.5 g/dL (12.0-18.0); MCH 29.5 (27-36); MCHC 33.7 g/dl (30-36); MCV 87.7 fl (81-99); MONOCYTES 12.3 % (0-12); NEUTROPHILS 59.9 % (39-80); PLATELET COUNT 274 K/uL (140-440); RBC 4.24 M/ul (4.3-5.7); RDW 14.1 (10.5-15.0)
[2024-06-17 05:43] LABS: ANION GAP 10.5 (7-21); BUN/CREATININE RATIO 27.77 (6.0-28.6); CALCIUM 8.3 mg/dL (8.5-10.1); CREATININE, SERUM 0.9 mg/dL (0.55-1.02); PHOSPHORUS, INORGANIC 2.9 mg/dL (2.5-4.9); POTASSIUM 3.5 mmol/L (3.5-5.1)
--- NOTE | 2024-06-17 06:08 | NUR ---
PT RESTING WITH EYES CLOSED. AWAKENS EASILY. VS AND I&O OBTAINED. NGT PATENT WITH THICK GREEN DRAINAGE. NO C/O PAIN OR NAUSEA AT THIS TIME. HOB ELEVATED. SCD'S IN PLACE. NO NEEDS. CALL LIGHT IN REACH.
--- NOTE | 2024-06-17 07:41 | NUR ---
PT RESTING EYES CLOSED AT TIME OF SHIFT REPORT, LEFT UNDISTURBED WITH NEEDED ITEMS IN REACH. DR VASQUEZ IN TO SEE PT AT THIS TIME, SAYS OKAY TO ICE CHIPS FOR COMFORT. PT EATING ICE CHIPS AGREES SHE IS COMFORTABLE AT THIS TIME
--- NOTE | 2024-06-17 08:14 | NUR ---
UR CLINICAL REVIEW: 2 MN FOR VERSALUS-MEET INPT CRITERIA FOR LBO MEDICARE INPT 06/15/24 @ 1303 ORDER MATCHES REG NO AUTH REQUIRED PER MEDICARE GUIDELINES DISCHARGE PENDING FURTHER EVALUATION
--- NOTE | 2024-06-17 09:03 | NUR ---
PT RESTING EYES CLOSED VISITORS PRESENT X2
--- NOTE | 2024-06-17 09:41 | NUR ---
PT CONTINUES RESTING IN BED C/O NAUSEA MEDICATED PER REQUEST. PT AGREES TO SHIFT IN BED FREQUENTLY FOR PRESSURE RELIEF
--- NOTE | 2024-06-17 09:50 | NUR ---
PATIENT ALERT AND ORIENTED IN BED. DEMOGRAPHICS VERIFIED. HER UPDATED PHONE NUMBER IS [phone], ADMITTING NOTIFIED. PATIENT LIVES IN SINGLE LEVEL HOME WITH HER . SHE HAS NO STAIRS. HAS NO DME. SHE DRIVES AT [place]. STATES NO ISSUES PAYING UTILITIES OR OBTAINING FOOD AND MEDICATIONS. NO KNOWN CM NEEDS AT THIS TIME. DAUGHTER IN ROOM.
--- NOTE | 2024-06-17 09:57 | NUR ---
PATIENT IN BED RESTING AT THIS TIME. VITALS AND I&O'S DONE AND CHARTED. CALL LIGHT IN REACH. NO FURTHER NEEDS AT THIS TIME.
--- NOTE | 2024-06-17 10:18 | NUR ---
PT UP TO THE TOILET PASSES A LARGE AMOUNT OF FLAUTUS THEN MOVES TO THE RECLINER. NEEDED ITEMS AT CHAIRSIDE, VISITOR PRESENT IN THE ROOM
--- NOTE | 2024-06-17 10:33 | NUR ---
DR NASH IN TO SEE PT DAUGHTER IS PRESENT. ALL QUESTIONS ANSWERED
--- NOTE | 2024-06-17 11:57 | NUR ---
PT HAS MOVED BACK TO THE BED FROM THE CHAIR C/O LEG PAIN MEDS ADMINISTERED PER REQUEST. PT ENCOURAGED TO AMBULATE SEVERAL LAPS THIS SHIFT SHE AGREES TO CALL WHEN SHE IS READY
--- NOTE | 2024-06-17 12:31 | NUR ---
PT SNORING SOFTLY
--- NOTE | 2024-06-17 13:35 | NUR ---
pt continues resting eyes closed
--- NOTE | 2024-06-17 13:55 | NUR ---
PT AWAKE NOW AGREES PAIN MED WAS EFFECTIVE FOR HER.
--- NOTE | 2024-06-17 14:56 | NUR ---
PT DECLINES TO GO FOR A WALK AT THIS TIME REPORTS FEELING NAUSEATED. COMPAZINE ADMINISTERED. NO EMESIS
--- NOTE | 2024-06-17 15:34 | NUR ---
PT UP TO TOILET THEN AMBULATES A FULL LAP AND RETURNS TO BED. SCD'S IN PLACE FRESH ICE CHIPS TO BEDSIDE. PT DENIES ANY OTHER NEEDS
--- NOTE | 2024-06-17 18:14 | NUR ---
PT C/O NAUSEA AGAIN CONTINUES TO BE NAUSEATED EVEN AFTER ZOFRAN. NG TUBE FLUSHED WITH 40 OF H20 WHICH RETURNS QUICKLY ALONG WITH OTHER FLUID BUT NOT A GREAT DEAL.
--- NOTE | 2024-06-17 19:26 | NUR ---
REPORT RECEIVED FROM DAY SHIFT RN. PT LYING IN BED RESTING WITH EYES CLOSED. UPON AWAKENING REPORTS NAUSEA. PRN FOR N/V ADMIN PER EMAR. NO FURTHER NEEDS. CALL LIGHT IN REACH. WHITE BOARD UPDATED.
--- NOTE | 2024-06-17 20:02 | NUR ---
EVENING ASSESSMENT COMPLETE. SCHEDULED MEDS ADMIN PER EMAR. PT REPORTS SOME PAIN IN BLE, BUT TOLERABLE AT THIS TIME. DENIES ABD PAIN. NO C/O NAUSEA. NGT PATENT WITH GREEN DRAINAGE. ICE CHIPS AT BEDSIDE. BOWEL TONES ACTIVE. PT REPORTS FLATUS. ABD FIRM AND DISTENDED. HOB ELEVATED. ASSISTED TO REPOSITION. SCD'S IN PLACE. NO FURTHER NEEDS. CALL LIGHT IN REACH.
--- NOTE | 2024-06-17 20:53 | NUR ---
PT UP TO BR WITH CAREGIVER ASSISTED LIVING ASSIST TO VOID 100 ML. BACK TO BED, ALEXANDRO WELL. REPORTS BLE PAIN 5/10. PRN FOR PAIN ADMIN PER EMAR. NGT SECUREMENT DEVICE REPLACED. HOB ELEVATED. NO FURTHER NEEDS.
--- NOTE | 2024-06-17 22:46 | NUR ---
ROUNDING ON PT. PT AWAKENS WHEN THE DOOR OPENS. UP TO BR WITH SBA TO VOID 50 ML CONCENTRATED URINE. GAIT STEADY. BACK TO BED, ALEXANDRO WELL. ASSISTED TO REPOSITION TO RIGHT SIDE. NGT TO LIWS WITH CLEAR BROWN DRAINAGE. SCD'S IN PLACE. PT REPORTS LEG PAIN 5/10 AND NAUSEA. PRN'S ADMIN PER EMAR. BED ALARM FOR SAFETY. CALL LIGHT IN REACH.
[2024-06-18] VITALS (15 sets, daily range): BP systolic 118–175; BP diastolic 73–105
--- NOTE | 2024-06-18 00:27 | NUR ---
IV PUMP ALARMING. ISSUE RESOLVED. PT REPOSITIONED SELF TO BACK. RESTING WITH EYES CLOSED. RESPIRATIONS EVEN. CALL LIGHT IN REACH.
--- NOTE | 2024-06-18 01:46 | NUR ---
IV PUMP ALARMING. NEW BAG IVF INFUSING PER ORDER. SCHEDULED MEDS ADMIN. PT DOZING ON AND OFF SNORING SOFTLY. HOB ELEVATED NO C/O PAIN OR NAUSEA AT THIS TIME. CALL LIGHT IN REACH.
--- NOTE | 2024-06-18 03:04 | NUR ---
PT RESTING IN BED WITH EYES CLOSED. RESPIRATIONS EVEN. CALL LIGHT IN REACH.
--- NOTE | 2024-06-18 03:43 | NUR ---
CALL LIGHT ANSWERED. PT UP TO BR WITH SBA TO VOID AND PASS GAS. GAIT STEADY. BACK TO BED, ALEXANDRO WELL. PT REPORTS ABD PAIN AND NAUSEA. PRN'S ADMIN. NGT TO LIWS WITH GREEN DRAINAGE. NGT FLUSHED WITH 30 ML TAP WATER, IMMEDIATE RETURN NOTED. HOB 30 DEGREES. BOWEL TONES ACTIVE. ABD FIRM AND DISTENDED. NO FURTHER NEEDS. CALL LIGHT IN REACH.
--- NOTE | 2024-06-18 04:16 | NUR ---
PT RESTING IN BED WITH EYES CLOSED. RESPIRATIONS EVEN. CALL LIGHT IN REACH.
[2024-06-18 05:44] LABS: BASOPHILS 0.2 % (0-2); EOSINOPHILS 1.5 % (0-6); HEMATOCRIT 36.7 % (35.0-50.0); HEMOGLOBIN 12.2 g/dL (12.0-18.0); LYMPHOCYTES 20.7 % (24-44); MCH 29.3 (27-36); MCHC 33.3 g/dl (30-36); MCV 87.9 fl (81-99); MONOCYTES 10.5 % (0-12); NEUTROPHILS 67.1 % (39-80); PLATELET COUNT 271 K/uL (140-440); RBC 4.17 M/ul (4.3-5.7); RDW 14.1 (10.5-15.0)
[2024-06-18 06:00] LABS: ANION GAP 8.3 (7-21); BUN/CREATININE RATIO 20.48 (6.0-28.6); CALCIUM 8.1 mg/dL (8.5-10.1); CREATININE, SERUM 0.83 mg/dL (0.55-1.02); MAGNESIUM 1.7 mg/dL (1.8-2.4); PHOSPHORUS, INORGANIC 3.2 mg/dL (2.5-4.9); POTASSIUM 3.3 mmol/L (3.5-5.1)
--- NOTE | 2024-06-18 06:24 | NUR ---
PT UP TO BR WITH SBA TO VOID. BACK TO BED, ALEXANDRO WELL. REPORTS NAUSEA AND ABD PAIN. PRN'S ADMIN PER EMAR. HOB ELEVATED. NGT TO LIWS WITH GREEN DRAINAGE. VS AND I&O OBTAINED. NO FURTHER NEEDS.
[2024-06-18] MEDS ORDERED: MAGNESIUM SULFATE 2 GM/50 ML BAG IV ONE (06:45)
--- NOTE | 2024-06-18 07:19 | NUR ---
PT ALERT AND INTERACTIVE AT TIME OF SHIFT REPORT. HAS JUST SPOKE WITH DR VASQUEZ AND SIGNED CONSENT FOR SURGERY. DENIES QUESTIONS AND AGREES SHE IS COMFORTABLE. REMAINS NPO FOR SURGERY.
--- NOTE | 2024-06-18 08:00 | NUR ---
PT RESTING IN BED. WASH RAG PROVIDED FOR FACE. PT UP TO VOID, SBA. URINE SAMPLE COLLECTED, SENT TO LAB. PT WIPE SX WIPE DOWN COMPLETE. NEW GOWN, BRIEF, AND SOCKS PROVIDED. LINEN CHANGE COMPLETE. PT REFUSED THE BLINDS BEING OPENED. PT REQ TO GET BACK TO BED. PT REQ ALL SIDE RAILS UP. DENIES ANY FURTHER NEEDS AT THIS TIME, CALL LIGHT IN REACH.
--- NOTE | 2024-06-18 08:11 | NUR ---
PT UP TO TOILET AND DO PRE-OP AND PERSONAL CARES. FAMILY PRESENT X2 QUESTIONS ANSWERED
[2024-06-18 08:15] LABS: BILIRUBIN, URINE NEGATIVE (negative); BLOOD/HGB, URINE NEGATIVE (Negative); KETONE, URINE NEGATIVE (Negative); LEUK ESTERASE, URINE NEGATIVE (negative); NITRITE, URINE NEGATIVE (negative)
--- NOTE | 2024-06-18 08:33 | NUR ---
RN NOTIFIED OF NG NEEDING RECONNECTED TO SUCTION.
[2024-06-18] MEDS ORDERED: POTASSIUM CHLORIDE 40 MEQ in DEXTROSE 5% 250 ML IV ONE (09:00)
--- NOTE | 2024-06-18 09:33 | NUR ---
PT RESTING IN BED DOZING AT TIMES AWAKENS EASILY. PT CONTINUES TO FEEL NAUSEATED THOUGH SHE STATES "IT'S OKAY" AT THIS TIME. AGREES ZOFRAN HAS "HELPED" BUT DOES NOT GIVE TOTAL RELIEF. PT DENIES ANY NEEDS AT THIS TIME.
[2024-06-18] MEDS ORDERED: METOCLOPRAMIDE HCL 10 MG/2 ML SDV ONE (09:35)
[2024-06-18] MEDS ORDERED: SUCCINYLCHOLINE IN 0.9% NACL 200 MG/10 ML SYRINGE ONE (09:35)
[2024-06-18] MEDS ORDERED: LACTATED RINGER'S 1,000 ML IV ONE ×2 (09:35→11:58)
[2024-06-18] MEDS ORDERED: DEXAMETHASONE SOD PHOS 4 MG/ML VIAL ONE (09:35)
[2024-06-18] MEDS ORDERED: KETOROLAC TROMETHAMINE 30 MG/ML VIAL ONE (09:35)
[2024-06-18] MEDS ORDERED: propofoL 200 MG/20 ML VIAL ONE ×6 (09:35→15:37)
[2024-06-18] MEDS ORDERED: ROCURONIUM BROMIDE 50 MG/5 ML SYR ONE (09:35)
[2024-06-18] MEDS ORDERED: SUGAMMADEX SODIUM 200 MG/2 ML ML ONE (09:35)
[2024-06-18] MEDS ORDERED: ondansetron HCL 4 MG/2 ML VIAL ONE (09:35)
[2024-06-18] MEDS ORDERED: FAMOTIDINE 20 MG/ 2 ML VIAL ONE (09:36)
[2024-06-18] MEDS ORDERED: LIDOCAINE HCL 4% 5 ML AMP ONE (09:36)
[2024-06-18] MEDS ORDERED: MIDAZOLAM HCL 2 MG/2 ML VIAL ONE (09:36)
[2024-06-18] MEDS ORDERED: fentaNYL citrate 100 MCG/2 ML VIAL ONE (09:36)
[2024-06-18] MEDS ORDERED: HYDROmorphone HCL 2 MG/ML VIAL ONE (10:50)
[2024-06-18] MEDS ORDERED: VECURONIUM BROMIDE 20 MG VIAL IV ONE (12:09)
[2024-06-18] MEDS ORDERED: DIGOXIN 500 MCG/2 ML AMP ONE (12:09)
[2024-06-18] MEDS ORDERED: HYDROCORTISONE SOD SUCCINATE 100 MG/2 ML VIAL ONE (12:09)
[2024-06-18] MEDS ORDERED: WATER STERILE 20 ML VIAL ONE (12:09)
[2024-06-18] MEDS ORDERED: SEVOFLURANE 250 ML BTL ONE (12:17)
[2024-06-18] MEDS ORDERED: KETAMINE in NS 50 MG/5 ML SYR ONE (12:21)
[2024-06-18] MEDS ORDERED: IBLOOD GLUCOSE TEST STRIP 1 EA TEST VI PRN (13:00)
[2024-06-18] MEDS ORDERED: fentaNYL citrate 50 MCG/ML SDV IV PRN (13:00)
[2024-06-18] MEDS ORDERED: METOCLOPRAMIDE HCL 10 MG/2 ML SDV IV PRN (13:00)
[2024-06-18] MEDS ORDERED: NALOXONE HCL 0.4 MG SYR IV PRN (13:00)
[2024-06-18] MEDS ORDERED: PROCHLORPERAZINE EDISYLATE 10 MG/2 ML VIAL IV PRN (13:00)
[2024-06-18] MEDS ORDERED: ondansetron HCL 4 MG/2 ML VIAL IV PRN (13:00)
[2024-06-18] MEDS ORDERED: droPERidol 5 MG/2 ML VIAL IV PRN (13:00)
[2024-06-18] MEDS ORDERED: HYDROmorphone HCL 1 MG/ML SYR IV PRN (13:00)
[2024-06-18] MEDS ORDERED: ATROPINE SULFATE 1 MG/ML VIAL ONE (13:57)
--- NOTE | 2024-06-18 15:13 | NUR ---
PATIENT REMAINS IN SURGICAL DEPARTMENT.
--- NOTE | 2024-06-18 16:07 | NUR ---
06/18/24 1607 Leatha Freeman CRNA ADMINISTERING EPHEDRINE FOR BLOOD PRESSURE.
[2024-06-18] MEDS ORDERED: ePHEDrine sulfate 50 MG/ML AMP ONE (16:15)
[2024-06-18] MEDS ORDERED: SALINE LOCK FLUSH 5 ML SYR IV PRN (16:30)
--- NOTE | 2024-06-18 17:40 | NUR ---
PICC INSERTION NOTE: ASKED BY DR. VASQUEZ TO EVALUATE PATIENT FOR POTENTIAL PICC LINE PLACEMENT. PT WILL NEED TPN TO BE STARTED TOMORROW, 06/19/24. CONSENT WAS OBTAINED BY DR. VASQUEZ PRIOR TO [facility] FOR PATIEN TO HAVE A CENTRAL LINE. CENTRAL LINE WAS NOT OBTAINED IN OR, AND THEREFORE PICC WAS SOUGHT AFTER. PATIENT'S RIGHT ARM WAS EVALUATED FIRST USING THE SITE RITE U/S AND THE BASILIC AND BRACHIAL VEINS WERE IDENTIFIED. THE BASILIC VEIN WAS ESTIMATED TO TAKE UP 37% OF THE VEIN DIAMETER USING A 4FR PICC. PATIENT'S ARM WAS PREPPED STERILLY FOLLOWING CDC RECOMMENDATIONS FOR STERILE PROCEDURE. BASILIC VEIN WAS EASILY ACCESSED UPON FIRST ATTEMPT WITH RETURN OF DARK, BRISK, NON PULSATILE BLOOD. GUIDEWIRE WAS THEN ADVANCED EASILY WITHOUT RESISTANCE, AND THEN THE INTRODUCER AND THEN THE PICC. OPTIMAL PLACEMENT WAS OBTAINED AND A CHEST XRAY WAS TAKEN. FIRST CHEST XRAY SHOWED PICC TO BE PLACED TOO DEEP AND THEREFORE WAS PULLED BACK 2 CM AND REPEAT CXR TAKEN. PICC WAS LEFT WITH CM EXPOSED. STERILE DRESSING WAS PLACED. BOTH LUMENS RETURNING BLOOD WHEN ARM EXTENDED OUT STRAIGHT. EDUCATION MATERIAL LEFT IN PATIENT'S CHART. PATIENT GIVEN EDUCAITON ON HER PICC LINE.
--- NOTE | 2024-06-18 18:50 | NUR ---
PATIENT ARRIVES TO CCU AT 1740 AFTER PACU FROM TOTAL COLECTOMY SURGERY. PATIENT HAS MIDLINE INCISION THAT IS COVERED WITH GAUZE AND TAPE AT THIS TIME. BOWEL SOUNDS ARE ABSENT STILL. NG TUBE TO LEFT NARE CONNECTED TO LOW INTERMITTENT SUCTION. BLOOD PRESSURES HAVE BEEN ELEVATED SINCE SURGERY, AROUND 170s/70s. PRN LABETALOL AVAILABE IF NEEDED SBP>180. PICC LINE PLACED IN RIGHT UPPER ARM AND TPN TO BE STARTED TOMORROW. PATIENT NOT WANTING TO HAVE HER FAMILY IN THE ROOM AT THIS TIME AND HER DAUGHTER AND HER SISTER HAVE LEFT FOR THE NIGHT. PRN NAUSEA MEDS WERE GIVEN PER PACU RNs. PT RESTING NOW WITH WARM BLANKETS. VASQUEZ DRAINING CLEAR YELLOW URINE.
--- NOTE | 2024-06-18 20:32 | NUR ---
SBAR REPORT AND HANDOFF RECEIVED FROM JACOB ALLISON. ALL EVENTS OF THE DAY WERE DISCUSSED AND PLAN OF CARE REVIEWED. BRIGID IS NOTED TO BE RESTING IN BED WITH EYES CLOSED. SHE INDICATES THAT SHE IS COMFORTABLE AND DENIES ANY NEEDS. SPO2 TRIAL ON RA FAILED DURING SEVERAL SA EPISODES BRINGING SPO2 DOWN TO 87%. PLACED ON 1 LITER O2. O2 NOW 99%. ATTEMPTS TO WEAN DOWN AND TITRATE OFF O2 WILL CONTINUE. NEURO- DROWSY AND ORIENTED, OPENS EYES TO VOICE, SOMEWHAT FORGETTFUL FROM SURGERY, PERRL CARDIAC- SR, AFEBRILE, NO EDEMA RESP- 1L NC, BREATH SOUNDS CLEAR, SA, SONOROUS GI/- INDWELLING VASQUEZ CATHETER PATENT AND INTACT, HYPOACTIVE BOWEL TONES, ABSENT BOWEL TONES INT- SEE ASSESSMENT
[2024-06-18] MEDS ORDERED: IBLOOD GLUCOSE TEST STRIP 1 EA TEST VI SCH (21:00)
--- NOTE | 2024-06-18 21:06 | NUR ---
20G R AC REMOVED DUE TO NO LONGER BEING NEEDED. CATHETER INTACT AND SITE WDL. RAINEY REPORTS COMFORT. NO NEEDS IDENTIFIED AT THIS TIME BOWEL TONES ABSENT
--- NOTE | 2024-06-18 22:09 | NUR ---
BRIGID CALLED AND REPORTED PAIN 8/10 IN ABDOMEN. 1MG PRN DILAUDID IV GIVEN, REPOSITIONED, AND LIGHTS DIMMED. NG TUBE ALSO REPORTED BOTHERSOME. IT WAS MOVED OUT OF EYESIGHT MUCH POSSIBLE. BRIGID IS NOW RESTING AGAIN. WILL REASESS WHEN APPROPRIATE
--- NOTE | 2024-06-18 23:23 | NUR ---
ICE CHIPS GIVEN FOR COMFORT. PATIENT BRIGID IS GRATEFUL FOR HER CARE AND DENIES ANY FURTHER NEEDS
[2024-06-19] VITALS (14 sets, daily range): BP systolic 130–170; BP diastolic 62–79
--- NOTE | 2024-06-19 00:31 | NUR ---
REPOSITIONED ONTO LEFT SIDE WITH JACOB LEPE. PATIENT BRIGID REPORTED ABDONMINAL PAIN 5/10 AND SOME SLIGHT NAUSEA. PRN ZOFRAN AND 1MG DILAUIDID GIVEN. TELEVISION TURNED ON. BRIGID ALSO CALLED HER SISTER TO WISH HER A HAPPY NEW YEAR. SHE STATED THAT HER SISTER AND DAUGHTER CAN VISIT HER "ANYTIME NO MATTER WHAT I SAY". NO OTHER NEEDS IDENTIFIED AT THIS TIME
--- NOTE | 2024-06-19 01:56 | NUR ---
SCHEDULED MED PROVIDED. PT STATES SHE HAS NO PAIN AT THIS TIME. ICE CHIPS PROVIDED. PT STATES NO OTHER NEEDS. CALL LIGHT IN REACH.
--- NOTE | 2024-06-19 04:24 | NUR ---
ICE CHIPS GIVEN FOR COMFORT, REPOSITIONED ONTO RIGHT SIDE. BRIGID WAS ABLE TO ASSIST HER REPOSITIONING. SHE IS RESTING WELL IN BED AND WATCHING TELEVISION. SHE ENDORSES COMFORT AT THIS TIME. HYPOACTIVE BOWEL TONES IN LEFT LOWER QUADRANT OF ABDOMEN.
--- NOTE | 2024-06-19 04:56 | NUR ---
PRN DILAUIDID 1MG ADMINISTERED FOR REPORTED PAIN 6/10 AFTER REPOSITIONING. TRIAL ON RA IN EFFECT
[2024-06-19 05:31] LABS: BASOPHILS 0.2 % (0-2); EOSINOPHILS 0.4 % (0-6); HEMATOCRIT 35.8 % (35.0-50.0); HEMOGLOBIN 11.8 g/dL (12.0-18.0); LYMPHOCYTES 10.1 % (24-44); MCH 29.1 (27-36); MCHC 32.9 g/dl (30-36); MCV 88.6 fl (81-99); MONOCYTES 9.6 % (0-12); NEUTROPHILS 79.7 % (39-80); PLATELET COUNT 290 K/uL (140-440); RBC 4.04 M/ul (4.3-5.7); RDW 14.1 (10.5-15.0)
--- NOTE | 2024-06-19 05:35 | NUR ---
1L NC REQUIRED TO MAINTAIN SPO2 SATS GREATER THAN 92% AFTER PRN DILAUIDID
[2024-06-19 05:40] LABS: INR 1.16 (0.80-1.30); PROTIME 14.7 Sec (11.2-14.2)
[2024-06-19 05:54] LABS: ALBUMIN/GLOBULIN RATIO 0.77 (1.1-2.4); ANION GAP 8.2 (7-21); BILIRUBIN, TOTAL 0.3 ng/dL (0.2-1.0); BUN/CREATININE RATIO 18.6 (6.0-28.6); CALCIUM 8.1 mg/dL (8.5-10.1); CHOLESTEROL/HDL RATIO 1.8; CREATININE, SERUM 0.86 mg/dL (0.55-1.02); MAGNESIUM 1.7 mg/dL (1.8-2.4); POTASSIUM 4.2 mmol/L (3.5-5.1); PROTEIN, TOTAL 4.6 g/dL (6.4-8.2)
--- NOTE | 2024-06-19 06:47 | NUR ---
NEURO- ALERT AND ORIENTED X4, MOVES ALL EXTREMITIES, PERRL, ASSISTS WITH REPOSITIONING, PRN DILAUDID FOR PAIN, ABLE TO EXPRESS ALL NEEDS AND DESIRES CARDIAC- SR, OCCASIONAL PACS, HTN NOTED INTERMITTENTLY THROUGHOUT SHIFT, AFEBRILE, PALPABLE PULSES RESP- 1L NC WHILE ASLEEP OR MEDICATED, SA, BREATH SOUNDS CLEAR/DIM GI/- MILD ABDOMINAL DISTENTION, HYPOACTIVE BOWEL TONES LEFT LOWER QUADRANT, ABSENT BOWEL TONES IN REMAINING 3 QUADRANTS, INDWELLING VASQUEZ CATHETER, MINIMAL URINE OUTPUT, URINE JEFFY AND CLEAR, ZOFRAN X 1 FOR REPORTED NAUSEA, TPN TO BE STARTED TODAY INT- ABDOMINAL DRESSING CLEAN, DRY, INTACT LDA- RIGHT BASILIC DOUBLE LUMEN PICC LEFT WRIST, LEFT AC PIV PATENT AND INTACT
--- NOTE | 2024-06-19 07:09 | OR ---
[facility] [address], [place] [address] Signed DATE OF OPERATION: 06/18/2024 SURGEON: Germán Vasquez MD PREOPERATIVE DIAGNOSIS: Large bowel obstruction in distal descending colon. POSTOPERATIVE DIAGNOSIS: Large bowel obstruction in distal descending colon. PROCEDURES: 1. Subtotal colectomy (prolonged and difficult at 4 hours). 2. Dole-xm-sipx antiperistaltic ileocolonic anastomosis hand-sewn in two layers. ESTIMATED BLOOD LOSS: 150 mL. FINDINGS: Des indeed had a large bowel obstruction in her distal descending colon just as it was passed her ovarian fimbria in the left pelvic brim. There was tremendous indurated scarring. Even with the cautery, it was difficult to get through this area. We eventually had it freed. We opened the specimen on the back table. We think this was all related to the scar tissue. We did not see any evidence of cancer inside the bowel. Once we had it freed from the sidewall, it was quite strictured, but we were able to straighten it up a bit and some gas was allowed to pass through. In addition, her bowel was very dilated all the way back to the cecum and full of pasty liquid stool. We had to decompress the bowel. Her abdomen was extremely dilated and it took an added over an extra hour to the case. In this way, it was prolonged and difficult. 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 She said at least the last year she has had progressive problems with pain in the left side of her abdomen with crampy waves of abdominal pain. She has declined colonoscopies in the past. Her sister has undergone Cologuard testing, it was negative. She said a week or two before she came to emergency room, it was horrendous. She ended up vomiting over 10 times. She knew she was quite dehydrated. She was hemodynamically stable and her white count was normal. CT scan of the abdomen and pelvis showed the transition in the distal descending colon. She has some diverticula. We could not see any evidence of metastatic disease. It was difficult to know if there was a tumor at this obstruction. I had been asked to admit her as a general surgeon on-call. She was Electronically Signed By: GERMÁN VASQUEZ MD 06/19/24 0709 PATIENT NAME: DES QUINTANILLA OPERATIVE REPORT DATE OF : 50 REPORT #: [id number] PHYSICIAN: GERMÁN VASQUEZ MD PCP: JASMYN RAMOS PA-C REPORT IS CONFIDENTIAL AND NOT TO BE RELEASED WITHOUT AUTHORIZATION [facility] [address], [place] [address] Signed given IV fluids and NG tube and Rocephin and Flagyl. It took a couple days to reverse her renal failure with a BUN of 48 and a creatinine of 1.24. She thought she was passing tiny amounts of flatus. When I 1st met her, she was in the ER. She was extremely and very firmly distended and tympanitic throughout. She did not have any peritoneal signs or symptoms. I think mainly with the NG tube decompression, then we had her at least significantly distended but moderately firm and tympanitic throughout. Again, no peritonitis. After a few days, she was not making any progress. I explained to Des and her sister that I think we are going to have to take her to surgery to relieve her bowel obstruction. Of course, we were not able to put her through a bowel prep. We were not able to pass our colonoscope through this area to assess the proximal colon. Des very much expressed her dislike for a colostomy or ileostomy even if it would be temporary. I explained to her the concept of possible synchronous colon cancer. In the end, we felt it was best she undergo a subtotal colectomy and ileosigmoid anastomosis. She understands the expected intraop and postop course. There is risk including, but not limited to bleeding, infection, scarring, change in contour of the skin, damage to bowel, anastomotic leak, incisional hernias and other and other unforeseen comorbidities. She had expressed understanding and wished to proceed. DESCRIPTION OF PROCEDURE: I talked with Des once again just before we took her back to the operating room. After this, we took her into the operating room and placed her in the supine position. She was placed under general endotracheal tube anesthesia. Her neck is very stiff and she cannot extend her head to any significant degree. It made the intubation a little more difficult. After this, a Hurtado catheter was inserted with return of little bit marquise urine. SCDs were in place and she has subcutaneous Lovenox. Rocephin and Flagyl were already on board. She was prepped and draped in the usual sterile fashion. We made a long midline incision with the help of a knife and carried into the abdomen with the help of the cautery. She had some ascitic fluid in the abdomen. It was quite impressive dilated her colon, I think that explains the longevity of her stricture. We could see and feel the stricture in the distal descending colon next to the brim of the pelvis and ovarian fimbria. There was very dense scar tissue adherence. We went ahead and went to the cecum. We opened the edge of the cecum and we milked out as much gas and liquid pasty stool as we could. It was well over a liter. We then closed that hole with interrupted silk sutures. We took down the right colon along the white line of Toldt and over to the midtransverse colon. Once we had it up of the abdomen, we took down the mesentery with Pean clamps and 0 Vicryl ties. We divided the terminal ileum with the linear stapler. The nurse and I then switched sides. We spent some time at the pelvic brim trying to free that area, it was quite difficult. Therefore, we went ahead and went up the white line of Toldt towards the splenic flexure. Her splenic flexure was up underneath the ribcage and I did take a little extra time. We did use some clips up underneath the ribcage as we divided the omentum and mesentery. Eventually, we had the splenic flexure completely up and out of the Electronically Signed By: GERMÁN VASQUEZ MD 06/19/24 0709 PATIENT NAME: DES QUINTANILLA OPERATIVE REPORT DATE OF : 50 REPORT #: [id number] PHYSICIAN: GERMÁN VASQUEZ MD PCP: JASMYN RAMOS PA-C REPORT IS CONFIDENTIAL AND NOT TO BE RELEASED WITHOUT AUTHORIZATION [facility] [address], [place] [address] Signed abdomen. We took down the mesentery then between Pean clamps and 0 Vicryl ties from the mid transverse colon all the way down to the area of the stricture. We thought most likely this was going to be a benign stricture from what we could see intraoperatively. We stayed pretty close to the bowel and we worked our way through it very carefully with the cautery. There were several bleeding points that we cauterized and are oversewed with some silk suture. Eventually, we had it completely freed. We had divided the bowel just distal to the stricture about 5-7 cm with the linear stapler. Once the entire bowel was free, we passed it off the table to our circulating nurse. She had opened up the bowel along its entire length and it looked like there is no evidence of any cancer. We think this may all be scar tissue. The nurse added a stitch at the level of the scar, so that it could be evaluated by the pathologist. We also put a stitch on the distal end of the colon and then of course about 5 or 6 cm of terminal ileum is with the cecum. After this had . We then brought the terminal ileum over to the distal sigmoid colon. The anterior taenia coli was just starting to splay out to the rectum. We allowed it to lay [id number] and we performed a standard two-layered anastomosis with Vicryl and silk sutures. The anastomosis was about 3.5 to 4 cm in length. It is widely palpably patent. We then closed the mesenteric rent with a running 2-0 Vicryl suture so the bowel would not slip underneath for internal hernia. The abdomen was irrigated and suctioned out until clear. All the instrument and lap counts were correct. We then closed the midline fascia with interrupted [id number] #1 PDS sutures. I injected local anesthetic along the full length of incision in the abdominal wall. The wound was irrigated and suctioned out until clear. We brought the dermis back together with interrupted 3-0 subcuticular Monocryl sutures. The skin was reapproximated with daiana. Dry gauze and tape was then applied. We left the Hurtado catheter in place. She was weaned from anesthesia, extubated in the OR and taken to recovery room in stable condition. Germán Vasquez MD ALB/MODL /[id number] cc: SILVESTRE Adrian MD Electronically Signed By: GREMÁN VASQUEZ MD 06/19/24 0709 PATIENT NAME: DES QUINTANILLA OPERATIVE REPORT DATE OF : 50 REPORT #: [id number] PHYSICIAN: GERMÁN VASQUEZ MD PCP: JASMYN RAMOS PA-C REPORT IS CONFIDENTIAL AND NOT TO BE RELEASED WITHOUT AUTHORIZATION [address] [place], [place] [address] Signed Copies: JASMYN RAMOS PA-C, ANDREW L MD ~ Electronically Signed By: GERMÁN VASQUEZ MD 06/19/24 0709 PATIENT NAME: DES QUINTANILLA OPERATIVE REPORT DATE OF : 50 REPORT #: [id number] PHYSICIAN: GERMÁN VASQUEZ MD PCP: JASMYN RAMOS PA-C REPORT IS CONFIDENTIAL AND NOT TO BE RELEASED WITHOUT AUTHORIZATION
[2024-06-19] MEDS ORDERED: MAGNESIUM SULFATE 2 GM/50 ML BAG IV ONE (08:00)
--- NOTE | 2024-06-19 09:03 | NUR ---
DR. VASQUEZ IN TO SEE PATIENT THIS AM AND PLAN OF CARE DISCUSSED. PT STILL HAS NG TUBE TO LEFT NARE. DR. VASQUEZ REMOVED DRESSING AND INCISION IS WELL APPROXIMATED WITH BRIDGET, NO REDNESS NOTED, AND MINIMAL DRAINAGE FROM MIDDLE OF INCISION. PT REMAINS IN SINUS RHYTHM 80s. PT'S SISTER HAS NOW ARRIVED AND IS VISITING WITH HER. PATIENT RATES PAIN 5/10 THIS AM AND PRN DILAUDID GIVEN. PT DENIES NAUSEA THOUGH AT THIS TIME. ONLY 30 ML CONCENTRATED URINE NOTED IN VASQUEZ CATH. HYPOACTIVE BOWEL SOUNDS HEARD. PLAN FOR PATIENT TO TRANSFER BACK TO THE MEDICAL FLOOR TODAY. PT EAGER TO GET UP AND START MOVING, ALTHOUGH HESITANT WITH THE PAIN THAT IS ANTICIPATED WITH MOVEMENT. SCDs REMAIN ON.
--- NOTE | 2024-06-19 10:57 | NUR ---
PATIENT PLACED BACK ON 1 L OF OXYGEN WHILE RESTING. PRN DILAUDID AND ZOFRAN GIVEN FOR 8/10 NAUSEA. WARM BLANKET PROVIDED. URINE OUTPUT WAS 50 ML AT THIS TIME.
--- NOTE | 2024-06-19 10:59 | NUR ---
DR. AMOS IN TO SEE PATIENT AT THIS TIME. NO NEW ORDERS REC'D. DR. OAKES TO ROUND ON PATIENT TOMORROW. DOOR CLOSED FOR PATIENT'S PRIVACY AND QUIETNESS SHE TRIES TO REST.
[2024-06-19] MEDS ORDERED: LACTATED RINGER'S 1,000 ML IV SCH (12:00)
--- NOTE | 2024-06-19 12:21 | NUR ---
REPORT RECEIVED FROM JACOB MEADE. PT TRANSPORTED TO ROOM 122 IN BED. NG TUBE TO L NARE TO L/I SUCTION, VASQUEZ CATH DRAINING FREELY, CPOX IN PLACE, NC IN PLACE AT 2L TO MAINTAIN SPO2>92%. SCDs IN PLACE. VS RECORDED AT THIS TIME. ICE CHIPS PROVIDED BY [facility]. IVF STARTED AT THIS TIME. CALL LIGHT IN REACH, NO REQUESTS.
--- NOTE | 2024-06-19 13:19 | NUR ---
ASSESSMENT COMPLETE. PT REPORTS ABD PAIN AT A 5/10 BUT DENIES INTERVENTIONS AT THIS TIME. NO NAUSEA. BOWEL TONES ACTIVE IN BUQ, HYPOACTIVE IN BLQ. PT REPORTS SHE HAS NO YET PASSED GAS TODAY. NG TUBE REMAINS IN PLACE AT L/I SUCTION. MD ARRIVES TO INTRODUCE HIMSELF TO PT, PT HAS NO QUESTIONS. PT RESTING COMFORTABLY IN BED AT THIS TIME, NO REQUESTS, CALL LIGHT IN REACH.
--- NOTE | 2024-06-19 14:19 | NUR ---
PT MEDICATED WITH 1MG IV DILAUDID FOR ABDOMINAL PAIN
[2024-06-19] MEDS ORDERED: FAT EMULSION 20% 500 ML IV SCH (16:00)
[2024-06-19] MEDS ORDERED: MULTIVITAMINS 10 ML,ZINC/COPPER/MANGANESE/SELENIUM 1 ML in AA 5% DEXT 20% WITH LYTES 2,... IV SCH (16:00)
--- NOTE | 2024-06-19 16:19 | NUR ---
TPN VERIFIED WITH JACOB JERNIGAN AND CHECKED AGAINST PAPER ORDER. IVF RATE TITRATED TO 20ML/HR TO MAINTAIN TOTAL INFUSION RATE OF 125ML/HR PER MD ORDERS. PT HAS DAUGHTER PRESENT IN ROOM RIGHT NOW, NO REQUESTS AT THIS TIME, CALL LIGHT IN REACH.
--- NOTE | 2024-06-19 16:51 | CONS ---
[facility] [address], [place] [address] Signed DATE OF CONSULTATION: 06/19/2024 CONSULTING PHYSICIAN: Gerber Oakes MD REQUESTING PHYSICIAN: Germán Vasquez MD ISSUE: Recent subtotal colectomy with ileoproctostomy. HISTORY OF PRESENT ILLNESS: This morbidly obese 74-year-old white woman was admitted by Dr. Vasquez on June 15, 2024. She was noted to have progressive difficulty with bowel movements and pain on the left side. She was seen in an Urgent Care Clinic and sent to the emergency room where she was found to have an extremely distended abdomen which was firm without signs of peritonitis. She had a functional obstruction of the colon. She had not had colonoscopy in the past. She essentially had a large bowel obstruction related to the descending colon. Resuscitation measures were undertaken and consultation also undertaken with Dr. Mcnair, the hospitalist. Her other medical problems have included history of acute diverticulitis, low back pain, history of small bowel obstruction. She has additionally hypertension and gastroesophageal reflux. Yesterday, June 18, 2024, she underwent subtotal colectomy with a iknc-an-[id number] ileocolonic anastomosis. The patient had an obstruction in the distal descending colon as it passed over the left pelvic brim. There was significant induration and scarring. There is no evidence of malignancy. I have been asked to assume additional care of the patient in the postoperative period as Dr. Vasquez has gone out of town. Today, she is feeling much better. She does have some incisional pain as would be expected. A Hurtado catheter is in place as is the nasogastric tube. PHYSICAL EXAMINATION: CHEST: Shows normal respiratory excursion. ABDOMEN: Quite obese, but soft. The incision is clean and dry and daiana are in place. There is no specific dressing in position at this time. A Hurtado catheter is in place. EXTREMITIES: Show no clubbing, cyanosis, or edema. LABORATORY STUDIES: Today show a white count of 14.3, hematocrit of 35.8, platelets 290,000. Chem profile is essentially normal. Glucose 133, magnesium 1.7, prealbumin is only 15.4. Electronically Signed By: GERBER OAKES MD 06/19/24 1651 PATIENT NAME: BRIGID QUINTANILLA CONSULTATION DATE OF : 50 REPORT #: [id number] PHYSICIAN: GERBER OAKES MD PCP: JASMYN RAMOS PA-C REPORT IS CONFIDENTIAL AND NOT TO BE RELEASED WITHOUT AUTHORIZATION [facility] [address], [place] [address] Signed ASSESSMENT: The patient is recovering from subtotal colectomy with primary anastomosis and a PICC line and peripheral TPN via the PICC line is anticipated. We will make efforts to get her out of bed today at least to a chair and possible ambulating as soon as possible to better help regulate her bowel motility. A Hurtado catheter will remain in place for the time being until such time as bowel function has returned. We discussed all this and she agrees. MD JUANPABLO Hanson/EVANS /[id number] cc: Germán Vasquez MD Copies: GERMÁN VASQUEZ MD ~ Electronically Signed By: GERBER OAKES MD 06/19/24 1651 PATIENT NAME: BRIGID QUINTANILLA CONSULTATION DATE OF : 50 REPORT #: [id number] PHYSICIAN: GERBER OAKES MD PCP: JASMYN RAMOS PA-C REPORT IS CONFIDENTIAL AND NOT TO BE RELEASED WITHOUT AUTHORIZATION
--- NOTE | 2024-06-19 18:56 | NUR ---
PT SPO2 SUSTAINS 98% ON 2L. O2 VIA NC TITRATED TO 1L AT THIS TIME, PT CONTINUES TO SUSTAIN SPO2 OF 98%. PT RESTING WITH EYES CLOSED, RR EVEN AND UNLABORED, CALL LIGHT IN REACH.
--- NOTE | 2024-06-19 19:38 | NUR ---
REPORT RECEIVED FROM DAY SHIFT RN. PT LYING IN BED RESTING WITH EYES CLOSED. RESPIRATIONS EVEN. CALL LIGHT IN REACH.
--- NOTE | 2024-06-19 20:23 | EKG ---
[facility] [address] [facility] [place], [place] [address] Signed Normal sinus rhythm Left anterior fascicular block Nonspecific ST and T wave abnormality Abnormal ECG No previous ECGs available Confirmed by Angie Amos DO ([id number]) on 06/19/2024 8:22:51 PM Electronically Signed By: ANGIE AMOS DO 06/19/242022 PATIENT NAME: BRIGID QUINTANILLA Electrocardiogram DATE OF : 50 PHYSICIAN: ANGIE AMOS DO REPORT #: [id number] REPORT IS CONFIDENTIAL AND NOT TO BE RELEASED WITHOUT AUTHORIZATION
--- NOTE | 2024-06-19 20:50 | NUR ---
EVENING ASSESSMENT COMPLETE. SCHEDULED MEDS ADMIN PER EMAR. PT REPORTS ABD PAIN 5/10. PRN FOR PAIN ADMIN PER EMAR. MIDNLINE ABD INCISION WITH BRIDGET INTACT. NO REDNESS OR DRAINAGE NOTED. BOWEL TONES ACTIVE. PT DENIES FLATUS. NGT PATENT WITH DARK GREEN DRAINAGE. VASQUEZ PATENT WITH YELLOW URINE. SCD'S IN PLACE. SpO2 MID 90'S WITH 1L/NC IN PLACE. VS AND I&O OBTAINED. FEW ICE CHIPS PROVIDED. PT DENIES QUESTIONS OR CONCERNS. CALL LIGHT IN REACH.
--- NOTE | 2024-06-19 23:39 | NUR ---
PT RESTING IN BED WITH EYES CLOSED. RESPIRATIONS EVEN. SpO2 96% ON 1L/NC. HR 80'S. CALL LIGHT IN REACH.
[2024-06-20] VITALS (10 sets, daily range): BP systolic 147–166; BP diastolic 64–89
--- NOTE | 2024-06-20 01:08 | NUR ---
CALL LIGHT ANSWERED. PT REPORTS NAUSEA AND ABD PAIN 12/26. PRN'S ADMIN PER EMAR. ICE PACK FOR ABD AND FEW ICE CHIPS PROVIDED FOR COMFORT. RIGHT UPPER ARM PICC LINE FLUSHED PER PROTOCOL. BRISK BLOOD RETURN NOTED. DRESSING INTACT. NO FURTHER NEEDS. CALL LIGHT IN REACH.
--- NOTE | 2024-06-20 02:24 | NUR ---
PT RESTING WITH EYES CLOSED. AWAKENS EASILY. VS OBTAINED. SCHEDULED MEDS ADMIN PER EMAR. ASSESSMENT COMPLETE. NO NEEDS AT THIS TIME. CALL LIGHT IN REACH.
--- NOTE | 2024-06-20 05:32 | NUR ---
PT AWAKE IN BED. VS AND I&O OBTAINED. MORNING LABS DRAWN FROM PICC LINE PER PROTOCOL. PT REPORTS ABD PAIN 5/10. PRN FOR PAIN ADMIN PER EMAR. NO FURTHER NEEDS.
[2024-06-20 05:35] LABS: ANION GAP 5.6 (7-21); BUN/CREATININE RATIO 18.29 (6.0-28.6); CALCIUM 7.8 mg/dL (8.5-10.1); CREATININE, SERUM 0.82 mg/dL (0.55-1.02); MAGNESIUM 1.8 mg/dL (1.8-2.4); POTASSIUM 3.6 mmol/L (3.5-5.1)
--- NOTE | 2024-06-20 07:30 | NUR ---
REPORT RECEIVED FROM JACOB RODRIGUEZ. PT IS RESTING IN BED WATCHING TELEVISION AT THIS TIME. SHE IS ALERT AND EXPRESSES EXCITEMENT TO BEGIN WALKING TODAY BUT HAD QUESTIONS REGARDING ALL OF HER TUBES. PT EDUCATED ON THE USE OF A WALKER AND HOW WE WOULD WORK WITH ALL HER TUBES WITH HER. PT VERBALIZES UNDERSTANDING. NO OTHER NEEDS AT THIS TIME, CALL LIGHT IN REACH.
--- NOTE | 2024-06-20 08:09 | NUR ---
MEDICATIONS ADMINISTERED, SEE MAR. ASSESSMENT COMPLETE. PT MIDLINE INCISION IS OPEN TO AIR WITH SUTURES. NO REDNESS, ERYTHEMA NOTED. PT IS NON TENDER TO PALPATION AND HER ABDOMEN FEELS SOFT. PT REPORTS NO NAUSEA AT THIS TIME, BOWEL TONES HYPOACTIVE, PT REPORTS SHE STILL HAS NOT HAD FLATULENCE. NG TUBE IN PLACE TO L NARE ON L/I SUCTION, YELLOW BILE-COLOURED FLUID NOTED DRAINING IN TUBING. VASQUEZ CATH DRAINING FREELY, CLEAR YELLOW URINE. PTs PICC LINE IS INFUSING TPN WNL, BLOOD RETURN NOTED TO PURPLE PORT. RED PORT FLUSHED WITH 10ML/NS, BRISK BLOOD RETURN NOTED, LOCKED WITH 3ML HEPARIN AT THIS TIME. PT IS CHEWING ON ICE CHIPS AND WATCHING TELEVISION, LOOKING FORWARD TO AMBULATION TODAY. [facility] PROVIDED FRESH ICE PACK AND FRESH ICE CHIPS FOR PT, PLAN DISCUSSED WITH RACHEAL TO GET PT AMBULATING. IVF INFUSING IN L WRIST AT 20ML/HR, IV IN R AC FLUSHES WNL. PT HAS NO OTHER REQUESTS AT THIS TIME, CALL LIGHT IN REACH.
--- NOTE | 2024-06-20 09:01 | NUR ---
JACOB Braxton in room. Fresh ice chips and ice pack requested and given.
--- NOTE | 2024-06-20 10:24 | NUR ---
PT REPORTING ABDOMINAL PAIN AND NAUSEA. PAIN IS RATED AN 8/10, PRN PAIN MEDICATION AND NAUSEA MEDICATION PROVIDED. PT IS RESTING IN BED AT THIS TIME, STATES SHE WOULD LIKE TO WAIT UNTIL THESE MEDICATIONS TAKE EFFECT BEFORE AMBULATING. NO OTHER REQUESTS AT THIS TIME, CALL LIGHT IN REACH.
--- NOTE | 2024-06-20 12:03 | NUR ---
PT AMBULATES ONE LAP IN HALLWAY WITH THIS RN AND RUSSELL SPRINGER. PT ASSISTED BACK TO BED BY RACHEAL WELLS AND RACHEAL CAMP. PT REPORTS AN INCREASE IN NAUSEA, PRN NAUSEA MEDICATION ADMINISTERED. PT RESTING IN BED WITH SCDs IN PLACE, NG TO L/I SUCTION, IVF INFUSING WNL AND OXYGEN VIA NC AT 2L. PT HAS NO OTHER REQUESTS AT THIS TIME, CALL LIGHT IN REACH.
--- NOTE | 2024-06-20 12:33 | NUR ---
Patient walked two laps on [facility] floor with FWW and MOVEMENT THERAPIST assist. Requested ice chips and a cold pack.
--- NOTE | 2024-06-20 14:00 | NUR ---
Spoke with Des. She plans on dc tohome when cleared medically. She lives with her spouse and daughter. She has ramp into her home. Her sister will also help. Plans on home when cleared medically.
--- NOTE | 2024-06-20 14:26 | NUR ---
Temp was unable to be taken at the time, will try again at 1430. Patient reported being in pain. JACOB Braxton notified.
--- NOTE | 2024-06-20 14:32 | NUR ---
MEDICATIONS ADMINISTERED, SEE MAR. PT REPORTING ABDOMINAL PAIN IS A 4/10, PRN PAIN MEDICATION PROVIDED. PT RESTING IN BED AT THIS TIME, INTENDS ON AMBULATING THE HALLS AGAIN ONCE THE PAIN MEDICATION HAS HAD TIME TO WORK. NO OTHER REQUESTS AT THIS TIME, CALL LIGHT IN REACH.
--- NOTE | 2024-06-20 15:47 | NUR ---
BOAT OAR MAKER RUSSELL IN WITH PT TO AMBULATE THE HALLS. NG TUBE DISCONNECTED AT THIS TIME FOR WALK.
[2024-06-20] MEDS ORDERED: MULTIVITAMINS 10 ML,ZINC/COPPER/MANGANESE/SELENIUM 1 ML,Insulin Regular, Human 20 UNIT ... IV SCH (16:00)
--- NOTE | 2024-06-20 16:37 | NUR ---
MEDICATION ADMINISTERED, SEE AUG. PT RESTING WITH HOB ELEVATED, SOFT SNORE AUDIBLE. BOWEL TONES HYPOACTIVE THROUGHOUT, PT CURRENTLY REPORTS NO NAUSEA AND CONTINUES TO DENY FLATULENCE. AMBULATED TWICE WITH [facility] TODAY. NG TO L NARE DRAINING YELLOW COLOURED FLUID, VASQUEZ CATH FREELY DRAINING CLEAR YELLOW URINE, SCDs IN PLACE, CPOX IN PLACE FOR HX OF DESAT AFTER PRN PAIN MEDICATION ADMINISTRATION. PTs MIDLINE INCISION IS CLEAN AND DRY AND OPEN TO AIR. NO REDNESS/WARMTH NOTED, PT IS NON-TENDER TO PALPATION. ICE PACK IN PLACE ON MIDLINE. IVF INFUSING TO L WRIST AT 45ML/HR, TPN INFUSING TO PURPLE TOP PORT AT 83ML/HR. PT HAS NO REQUESTS AT THIS TIME, CALL LIGHT IN REACH.
--- NOTE | 2024-06-20 16:54 | NUR ---
Patient walked three laps around [facility] with FWW and assistance from CARPET JOURNEYMAN. CPOX, SCDs, and NG tube reattached after returning to bed.
--- NOTE | 2024-06-20 18:38 | NUR ---
PATIENT C/O PAIN. PRN ADMINSTERED.
--- NOTE | 2024-06-20 19:03 | NUR ---
SHIFT REPORT RECEIVED FROM DIANEIDKRISTIN HOLDEN AT BEDSIDE. pt RESTING QUIETLY IN BED, ON RA. 1.5-2L PRN NEXT TO pt W/ PAIN MEDICATION ADMINSITRAIONS, CPOX AT BEDSIDE. SPO2 91% ON RA, HR 80. NG TUBE SECURED AND PATENT, COLOR GREEN IN TUBING, ON LIWS. VASQUEZ PATENT. PICC LINE DRESSING WNL, TPN INFUSING VIA PURPLE LUMEN DIRECTED AND IV FLUIDS INFUSING AT 45MLS/HR TO LEFT WRIST IV SITE WNL. SCD'S IN PLACE. NO NEEDS OR CONCERNS VERBALIZED, CALL LIGHT IN REACH.
--- NOTE | 2024-06-20 21:11 | NUR ---
VS COMPLETED, VASQUEZ EMPTIED, NEW BAG LR INFUSING. LINENS STRAIGHTENED ON BED TO PT SATIFACTION; CALL LIGHT WITHIN REACH. NO OTHER NEEDS AT THIS TIME.
--- NOTE | 2024-06-20 21:30 | NUR ---
ASSESSMENT COMPLETE, SCHEDULED MEDS GIVEN-SEE EMAR. pt REPORTS PAIN 3/10, RESTING IN BED ON HER BACK. ABD INCISION PARKING METER SERVICER, BRIDGET IN PLACE. SITE WNL, WELL APPROXIMATED. BOWEL TONES HYPOACTIVE, DENIES NAUSEA. NG TUBE TO LIWS, REMAINS PATENT. SCD'S IN PLACE. WITH HELP FROM RT GAMBLE, NEW NG TUBE SECUREMENT DEVICE IN PLACE, MASTISOL USED. pt EDUCATED AND VERBALIZED UNDERSTANDING. CALL LIGHT IN REACH.
--- NOTE | 2024-06-20 22:42 | NUR ---
PRN PAIN MEDICATION GIVEN FOR REPORTED 4/10 PAIN TO ABD, SEE EMAR. IV SITE DC'S TO LEFT AC, D/T LEAKING. IV SITE TO LEFT WRIST WNL, FLUIDS INFUSING DIRECTED. TPN INFUSING WNL TO PURPLE TOPPED LUMEN TO PICC, RED TOPPED LUMEN SALINE LCOKED PER PROTOCOL, BRISK BLOOD RETURN NOTED. SCD'S IN PLACE. NO FURTHER NEEDS OR CONCERNS VERBALZIED, CALL LIGHT IN REACH. ENCOURAGED pt TO AMBULATE IN HALLWAY BEFORE BED, pt DECLINED AT THIS TIME, STATING, "MAYBE LATER".
[2024-06-21] VITALS (7 sets, daily range): BP systolic 131–170; BP diastolic 63–89
--- NOTE | 2024-06-21 01:10 | NUR ---
call light answered, prn nausea medication given-see emar. iv site wnl, fluids infusing wnl. no changes to abd, midline incision wnl with daiana in place-bill. well approximated without reddness. bowel tones hypoactive to borderline active with ng tube turned off, liws resumed. flushed with 40mls tap water. pt tolerated well and ng tube remains patent. cath care done and jenkins remains also patent. unused lumen on picc hep locked, curcumference 34cm-discussed with meteorologist in chargekiko sims. brisk blood return remains. tpn in other lumen infusing as directed. scd's in place and call light in reach.
--- NOTE | 2024-06-21 03:07 | NUR ---
scheduled bp med given-see emar. ng tube remains patent and to liws, new nasal securement device in place as previous one was somewhat crooked. prn pain medication also given-see emar. warm blanket provided, call ligt in reach. temp wnl.
--- NOTE | 2024-06-21 05:45 | NUR ---
pt ON 1LNC PRN, CPOX AT BEDSIDE. PRN PAIN AND NAUSEA MEDICATION GIVEN-SEE EMAR. SCD'S IN PLACE. AM BLOOD DRAW COLLECTED FROM PICC PER PROTOCOL AND SENT TO LAB, RED TOPPED LUMEN SALINE LOCKED AT THIS TIME, PURPLE TOPPED LUMEN CONTINUES TO INFUSE TPN DIRECTED. CALL LIGHT IN REACH.
[2024-06-21 06:09] LABS: ANION GAP 5.3 (7-21); BUN/CREATININE RATIO 18.84 (6.0-28.6); CREATININE, SERUM 0.69 mg/dL (0.55-1.02); MAGNESIUM 1.7 mg/dL (1.8-2.4); PHOSPHORUS, INORGANIC 3.6 mg/dL (2.5-4.9); POTASSIUM 3.3 mmol/L (3.5-5.1)
--- NOTE | 2024-06-21 07:25 | NUR ---
REPORT RECEIVED FROM ADVANCED SOLUTIONS ARCHITECT RN. PATIENT RESTING IN BED. TPN AND IVF VERIFIED WITH [employer] ARCHITECT RN. ALL FLUIDS INFUSING WNL. MIDLINE INCISION IS WELL APPROXIMATED AND WITHOUT SIGNS AND SYMPTOMS IF INFECTION. CALL LIGHT WITHIN REACH.
--- NOTE | 2024-06-21 07:58 | NUR ---
PATIENT C/O PAIN AND NAUSEA. PRN ADMINSTERED. SEE MAR.
[2024-06-21] MEDS ORDERED: MAGNESIUM SULFATE 2 GM/50 ML BAG IV ONE (09:00)
[2024-06-21] MEDS ORDERED: POTASSIUM CHLORIDE 40 MEQ,LIDOCAINE HCL 1% 40 MG in DEXTROSE 5% 250 ML IV ONE (09:00)
--- NOTE | 2024-06-21 09:30 | NUR ---
PATIENT RESTING IN BED. AM MEDICATIONS ADMINSTERED. LUNGS CTA. BOWEL TONES HYPOACTIVE IN LOWER QUADRANTS ACTIVE UPPER QUADRANTS. MIDLINE INCISION WELL APPROXIMATED. PICC LINE REMAINS WNL. PERPHERIAL IV SITE WNL. NGT TO INT SUCTION. ALL IV FLUIDS AND TPN INFUSING WNL. VASQUEZ CATHERTER DRAINING YELLOW URINE. NO FURTHER NEEDS AT THIS TIME. CALL LIGHT WITHIN REACH.
--- NOTE | 2024-06-21 10:15 | NUR ---
PATIENT C/O PAIN. PRN ADMINSTERED. NO FURTHER NEEDS CALL LIGHT WITHIN REACH.
--- NOTE | 2024-06-21 11:16 | NUR ---
PATIENT OOB UP WITH PT, WALKING IN THE BAXTER.
--- NOTE | 2024-06-21 12:01 | NUR ---
PRN ADMINSTERED FOR NAUSEA SEE MAR.
--- NOTE | 2024-06-21 12:30 | NUR ---
In to room to see Des. Dr. Aguirre in room. Pt stating she is feeling better and walking in [place]. Pt has NG in place. She denies needs.
--- NOTE | 2024-06-21 13:39 | NUR ---
IN TO ROUND ON PATIENT. PATIENT RESTING IN BED WITH HOB ELEVATED. EYES CLOSED. RESPIRATIONS EVEN AND UNLABORED. NGT REMAINS IN PLACE TO LOW INT SUCTION. IVF INFUSING WITH NO ISSUES OR CONCERNS. TPN INFUSING WITH NO ISSUES OR CONCERNS. PICC WNL, PERPHERIAL IV SITE WNL. CALL LIGHT WITHIN REACH.
--- NOTE | 2024-06-21 14:26 | NUR ---
PATIENT C/O PAIN. PRN ADMINSTERED. SCHEDULED MEDICATIONS ADMINSTERED. FRESH ICE CHIPS GIVEN. IVF INCREASED TO NEW ORDERED RATE. IV SITE REMAINS WNL. PICC CONTINUES TO BE WNL. PATIENT REQUESTING WARM BLANKET. WARM BLANKET GIVEN. NO FURTHER NEEDS CALL LIGHT WITHIN REACH.
--- NOTE | 2024-06-21 15:45 | NUR ---
PATIENT RESTING IN BED WITH EYES CLOSED. RESPIRATOINS EVEN AND UNLABORED. CALL LIGHT WITHIN REACH. CALL LIGHT WITHIN REACH.
--- NOTE | 2024-06-21 16:40 | NUR ---
TNP AND LIPIDS HUNG. SECOND RN VERIFICATION COMPLETED.
--- NOTE | 2024-06-21 17:20 | NUR ---
PATIENT C/O PAIN AND NAUSEA. PRNS ADMINSTERED. REPORTS TO THIS RN THAT PATIENT'S BRIEF WAS CHANGED EARILER IN THE DAY. BRIEF WAS SOILD WITH SCANT AMOUNT OF STOOL RESEMBLING A "BART MITCHELL." PATIENT CONTINUES TO DENY ANY PASSING OF GAS. BOWEL TONES REMAIN HYPOACTIVE. MIDLINE INCISION REMAINS WELL APPROXIMNATED WITH BRIDGET. NO S/SX OF INFECTION, NO DRAINAGE NOTED. PICC LINE WNL, PERPHERIAL IV SITE WNL. NO FURTHER NEEDS AT THIS TIME. CALL LIGHT WITHIN REACH.
--- NOTE | 2024-06-21 18:45 | NUR ---
RN SPOKE WITH MD ON UNIT. VERBAL ORDERS TO DISCONTINUE IV LR. ORDERS ENTERED. PERPHERIAL IV SITE SALINE LOCKED. PATIENT WAS OOB AND AMBULATING AROUND THE UNIT. WHEN PATIENT WAS OOB WAS NOTED THAT HER SLADE HAD SCANT AMOUNTS OF STOOL ON IT. PATIENT CONTINUES TO DENY PASSING GAS. PATIENT BACK IN BED. NO FURTHER NEEDS AT THIS TIME. CALL LIGHT WITHIN REACH.
--- NOTE | 2024-06-21 19:04 | NUR ---
SHIFT REPORT RECEIVED FROM GARY RN, PT AWAKE AND ALERT, TPN AND LIPIDS INFUSING WELL PER ORDER, PER PICC LUMANS, DRESSING INTACT, SITE PATENT, NG TO LIWS, DRAINING GREEN COLORED FLUID, CPOX IN PLACE, PT REQUESTING PAIN MEDICATION.
--- NOTE | 2024-06-21 19:22 | NUR ---
PT MEDICATED WITH DILAUDID 1 MG IV PER ORDER FOR ABDOMINAL PAIN 08/26, PT REQUESTING NAUSEA MEDICATION BUT DISCUSSED IT IS TOO EARLY AT THIS TIME. PT RESTING, SIDE RAILS UP X 4, CALL LIGHT IN REACH, OXYGEN REPLACED AT 1L/NC DUE TO SATS 89-90 AND FREQUENT ADMINISTRATION OF DILAUDID.
--- NOTE | 2024-06-21 20:12 | NUR ---
PT VS AND ASSESSMENT COMPLETED, VS STABLE, ACCUCHECK 147, VASQUEZ OUT 400ML YELLOW URINE, NG OUT 100ML GREEN FLUID, ICE TO ABDOMEN, BRIDGET INTACT TO ABD WOUND, NO DRAINAGE NOTED, SCDS ON, PICC LINE CIRCUMFERENCE 34CM, SITE INTACT, NO TENDERNESS IN RIGHT ARM, ARM ELEVATED ON PILLOW, FRESH ICE GIVEN, PT TAKING SMALL AMOUNTS AT A TIME.
--- NOTE | 2024-06-21 21:59 | NUR ---
PT REQUESTING PAIN MED, MEDICATED WITH DILAUDID 1MG IV PER ORDER, PT MEDICATED WITH ZOFRAN PER REQUEST, GIVEN PER PERIPHERAL IV IN LEFT WRIST, SITE INTACT, PT RESTING WITHOUT OTHER REQUESTS. .
--- NOTE | 2024-06-21 22:03 | NUR ---
PT REQUESTING PAIN MED FOR ABDOMINAL PAIN 08/26, PT MEDICATED WITH DILAUDID 1MG IV PER ORDER, PT WITHOUT OTHER REQUESTS.
--- NOTE | 2024-06-21 23:20 | NUR ---
PT APPEARS TO SLEEP, RESP EVEN AND REG, CPOX 96%.
[2024-06-22] VITALS (9 sets, daily range): BP systolic 111–153; BP diastolic 61–74
--- NOTE | 2024-06-22 00:51 | NUR ---
RN CALLED TO ROOM, PT REQUESTING PAIN MED AND NAUSEA MEDICATION, PT MEDICATED WITH DILAUDID 1MG IV FOR PAIN 3/10, MEDICATED WITH COMPAZINE 5MG IV PER LEFT WRIST SL, SITE INTACT. SATS STABLE ON 1L/NC, PICC LINE PATENT, SITE INTACT, FRESH ICE GIVEN, NG TO LIWS.
--- NOTE | 2024-06-22 01:03 | NUR ---
PT AWAKE AND ALERT, REQUESTING PAIN AND NAUSEA MEDICATION, PT MEDICATED WITH DILAUDID 1MG IV FOR ABD PAIN 08/26, PT MEDICATED WITH COMPAZINE 5MG IV FOR NAUSEA PER ORDER, NG CONTS AT LIWS, DRAINING LIGHT GREEN FLUID, O2 REMAINS ON AT 1L/NC, CPOX AT 95%. TPN INFUSING AT 83.8ML/HR AND LIPIDS AT 20.8ML/HR, PICC LINE. PT DENIES OTHER NEEDS AT THIS TIME.
--- NOTE | 2024-06-22 01:59 | NUR ---
PT APPEARS TO SLEEP, RESP EVEN AND REG, CPOX AT 96%.
--- NOTE | 2024-06-22 02:46 | NUR ---
PT AWAKE, CALM, VS STABLE, RT IV MEDICATION GIVEN, PT GIVEN FRESH ICE CHIPS, DISCUSSED WALKING IN HALLS A LITTLE LATER AFTER PAIN MED, PT AGREES, PICC LINE PATENT, TPN AND LIPIDS INFUSING WELL, CPOX STABLE AT 97% ON 1L/NC.
--- NOTE | 2024-06-22 03:44 | NUR ---
PT REQUESTING PAIN AND NAUSEA MEDICATION, MEDICATED WITH 1MG DILAUDID IV AND ZOFRAN 8MG IV PER ORDER, SL PATENT LEFT WRIST, PT RESTING WITHOUT OTHER REQUESTS AT THIS TIMEL
--- NOTE | 2024-06-22 05:39 | NUR ---
ELECTRONIC SPECIALIST OBTAINED VITALS AND I&O. PT STATES NO NEEDS AT THIS TIME. CALL LIGHT WITHIN REACH.
--- NOTE | 2024-06-22 06:23 | NUR ---
PT REQUESTING PAIN AND NAUSEA MEDICATION, MED WITH DILAUDID 1MG IV AND COMPAZINE 5MG IV PER SL IN LEFT WRIST, LAB IN TO DRAW AM BLOOD WORK, TPN/LIPIDS CONTINUE IN RIGHT PICC LINE, SITE INTACT, OXYGEN OFF AT THIS TIME PER PT, PLAN TO MONITOR CPOX, SAT 91%.
[2024-06-22 07:00] LABS: ANION GAP 7.5 (7-21); BUN/CREATININE RATIO 20.83 (6.0-28.6); CALCIUM 8.2 mg/dL (8.5-10.1); CREATININE, SERUM 0.72 mg/dL (0.55-1.02); MAGNESIUM 1.8 mg/dL (1.8-2.4); PHOSPHORUS, INORGANIC 3.8 mg/dL (2.5-4.9); POTASSIUM 3.5 mmol/L (3.5-5.1)
--- NOTE | 2024-06-22 07:30 | NUR ---
REPORT RECEIVED FROM SURVEILLANCE SYSTEM MONITOR RN. PATIENT RESTING IN BED WITH EYES CLOSED. TNP INFUSING INTO PICC LINE WITH NO ISSUES OR CONCERNS. PATIENT RESPIRATIONS EVEN AND UNLABORED. CALL LIGHT WITHIN REACH.
--- NOTE | 2024-06-22 08:38 | NUR ---
PATIENT RESTING IN BED. VSS. PICC LINE WNL. PERPHERIAL IV SITE WNL. MIDLINE INCISION WELL APPROXIMATED. NO S/SX OF INFECTION. BOWEL TONES HYPOACTIVE THROUGHOUT ABD. PATIENT WITH NO C/O NAUSEA AT THIS TIME. REPORTS PAIN. PRN ADMISTERED. NGT CONTINUES AND IS WNL. GREEN/BROWN DRAINAGE NOTED. FRESH ICE GIVEN. TPN AND LIPIDS INFUSSING WITH NO ISSUE OR CONCERNS. CALL LIGHT WITHIN REACH.
--- NOTE | 2024-06-22 09:20 | NUR ---
ROUNDING ON PATIENT. RESTING IN BED WITH NO NEEDS AT THIS TIME. CALL LIGHT WITHIN REACH.
--- NOTE | 2024-06-22 10:05 | NUR ---
PATIENT C/O NAUSEA. PRN ADMINSTERED. PICC LINE FLUSHED PER ORDERS SEE AUG. TPN CONTINUES TO INFUSE WITH NO ISSUES OR CONCERNS. PICC LINE SITE REMAINS WNL. IV SITE TO RIGHT WRIWST WNL. PATIENT DENIES ANY FURTHER NEEDS AT THIS TIME. CALL LIGHT WITHIN REACH.
--- NOTE | 2024-06-22 12:29 | NUR ---
PATIENT RESTING IN BED. C/O NAUSEA AND PAIN. PRN ADMINSTERED. NO FURTHER NEEDS AT THIS TIME. CALL LIGHT WITHIN REACH.
--- NOTE | 2024-06-22 13:45 | NUR ---
PATIENT RESTING IN BED. DENIES PASSING GAS AT THIS TIME. REPORTS NAUSEA CONTINUES AND IS MILD. REPORTS PAIN CONTINUES WITHA 3/10. MIDLINE INCISION REMAINS WELL APPROXIMATED. BOWEL TONES HYPOACTIVE X 4 QUADRANTS. VSS. BLOOD SUGAR OBTAINED. PATIENT DENIES ANY FURTHER NEEDS AT THIS TIME. CALL LIGHT WITHIN REACH.
[2024-06-22] MEDS ORDERED: IBLOOD GLUCOSE TEST STRIP 1 EA TEST VI SCH (14:00)
--- NOTE | 2024-06-22 14:27 | NUR ---
PATIENT OOB AMBULATED IN HALLWAY. WALKED 3 LAPS AROUND UNIT. TOLLERATED WELL. JAZMÍN IN TO SEE JESSICA.
[2024-06-22] MEDS ORDERED: MULTIVITAMINS 10 ML,ZINC/COPPER/MANGANESE/SELENIUM 1 ML,Insulin Regular, Human 20 UNIT ... IV SCH (16:00)
--- NOTE | 2024-06-22 16:27 | NUR ---
PATIENT RESTING IN BED WITH FAMILY AT BEDSIDE. NEW BAG OF TNP HUNG. PICC REMAINS WNL. PATIENT WITH NO NEEDS AT THIS TIME. CALL LIGHT WITHIN REACH.
--- NOTE | 2024-06-22 17:16 | NUR ---
PATIENT C/O PAIN AND NAUSEA. PRN'S ADMINSTERED. PATIENT GIVEN FRESH CLEAN GOWN. VITALS OBTAINED. PICC REMAINS WNL, TPN INFUSING WITH NO ISSUES OR CONCERNS. PATIENT NOTED TO DESAT TO 84% AFTER PRN ADMINSTRATION. RN APPLIED 1 LITTER OF OXYGEN. PATIENT SAO2 92% ON 1LO2. PATIENT WITH NO FURTHER NEEDS AT THIS TIME. CALL LIGHT WITHIN REACH.
--- NOTE | 2024-06-22 18:36 | NUR ---
IN TO ROUND ON PATIENT. RESTING IN BED WITH EYES CLOSED RESPIRATIONS EVEN AND UNLABORED. NGT IN PLACE ON LOW INT SUCTION. TPN INFUSING WITH NO ISSUES OR CONCERNS. CALL LIGHT WITHIN REACH.
--- NOTE | 2024-06-22 19:30 | NUR ---
SHIFT REPORT RECEIVED FROM GARY RN, PT RESTING QUIETLY, TPN INFUSING AT 83.8ML/HR, CPOX AT 96%, HR 78, SIDE RAILS UP X 4, FRESH ICE GIVEN, NG CONTS TO LIWS, GREEN FLUID NOTED.
--- NOTE | 2024-06-22 22:40 | NUR ---
PT APPEARS TO SLEEP, RESP EVEN AND REG, TPN INFUSING WELL PER PICC, CPOX 96% ON 1L/NC.
--- NOTE | 2024-06-22 23:37 | NUR ---
PT APPEARS TO SLEEP, RESP EVEN AND REG, CPOX AT 96%
[2024-06-23] VITALS (11 sets, daily range): BP systolic 111–153; BP diastolic 56–69
--- NOTE | 2024-06-23 00:35 | NUR ---
PT AWAKE AND ALERT, REQUESTING PAIN AND NAUSEA MEDICATION, GIVEN PER RED LUMAN OF PICC, GOOD BLOOD RETURN NOTED PRIOR TO ADMINISTRATION, PT DENIES OTHER NEEDS, TPN INFUSING WELL AT 83.6ML/HR, PICC DRESSING INTACT, PT RESTING, NG CONTS TO LIWS LIGHT GREEN FLUID.
--- NOTE | 2024-06-23 01:40 | NUR ---
PT APPEARS TO BE SLEEPING, RESP EVEN AND REG, TPN INFUSING WELL, CPOX STABLE.
--- NOTE | 2024-06-23 02:48 | NUR ---
PER REQUEST OF PRIMARY RN, SCHEDULED BP MEDICATION GIVEN-SEE EMAR VIA RED TOPPED PICC LUMEN, BRISK BLOOD RETURN NOTED. DRESSING WNL. NEW NG TUBE SECUREMENT DEVICE ALSO PLACED WITH HELP FROM REVENUE CYCLE CONSULTANT. CALL LIGHT IN REACH.
--- NOTE | 2024-06-23 03:22 | NUR ---
PT REQUESTING PAIN AND NAUSEA MEDICATION, MED WITH DILAUDID 1MG AND ZOFRAN 8MG PER ORDER, LEFT WRIST SL APPEARS REDDENED AND SWOLLEN ABOVE ENTRY SITE, TENDER WITH FLUSHING, D'KARIN INTACT. PT RESTING WITHOUT OTHER REQUESTS.
--- NOTE | 2024-06-23 06:30 | NUR ---
PT AWAKE AND ALERT, TPN OFF FOR APPROX 5 MINUTES, AM BLOOD DRAWN FOR LABS AFTER 10 ML WASTE, FLUSHED WITH NS 10ML AFTER BLOOD DRAW, PT REQUESTING PAIN AND NAUSEA MED, MEDICATED WITH DILAUDID 1MG AND COMPAZINE 5MG PER ORDER, PT REQUESTING SCDS OFF FOR A WHILE, DONE, PT RESTING WITHOUT OTHER REQUESTS.
[2024-06-23 06:43] LABS: HEMATOCRIT 30.4 % (35.0-50.0); HEMOGLOBIN 10.2 g/dL (12.0-18.0); MCH 29.5 (27-36); MCHC 33.4 g/dl (30-36); MCV 88.2 fl (81-99); PLATELET COUNT 294 K/uL (140-440); RBC 3.45 M/ul (4.3-5.7); RDW 14.1 (10.5-15.0)
[2024-06-23 06:53] LABS: ANION GAP 5.8 (7-21); BUN/CREATININE RATIO 22.97 (6.0-28.6); CALCIUM 8.3 mg/dL (8.5-10.1); CREATININE, SERUM 0.74 mg/dL (0.55-1.02); MAGNESIUM 1.8 mg/dL (1.8-2.4); PHOSPHORUS, INORGANIC 4.2 mg/dL (2.5-4.9); POTASSIUM 3.8 mmol/L (3.5-5.1)
[2024-06-23 06:57] LABS: EOSINOPHILS, MANUAL DIFF 5; LYMPHOCYTES, MANUAL DIFF 16; MONOCYTES, MANUAL DIFF 8; NEUTROPHILS, MANUAL DIFF 71
--- NOTE | 2024-06-23 07:49 | NUR ---
PT AWAKE RESTING IN BED AT TIME OF SHIFT REPORT. FRESH ICE TO BEDSIDE TABLE DENIES OTHER NEEDS OF. CALL LIGHT IN REACH. SATS 98% 02 DC'D, PULSE OX IN PLACE.
--- NOTE | 2024-06-23 08:35 | NUR ---
PT REQUESTS PAIN MED AND NAUSEA MED. ASKED IF SHE WAS STILL BATTLING NAUSEA SHE STATES THAT SHE IS NOT, BUT IS TAKING THIS MED IN CASE. ENCOURAGED PT TO GO WITHOUT IT FOR A TIME AND NOTIFY THIS WAREHOUSE LEAD IF IT IS NEEDED. PT AGREES
--- NOTE | 2024-06-23 09:15 | NUR ---
PT AMBULATES 5 CONSECUTIVE LAPS IN THE BAXTER WELL TOLERATED THEN GOES TO THE CHAIR
--- NOTE | 2024-06-23 10:35 | NUR ---
PT SITTING UP IN THE CHAIR VISITING WITH A GUEST EATING HARD CANDY. DENIES NEEDS AT THIS TIME
--- NOTE | 2024-06-23 12:24 | NUR ---
PT MOVES BACK TO THE BED FROM THE CHAIR AND REQUESTS PAIN MED. FRESH ICE DELIVERED WELL. ASKED PT IF SHE WAS HAVING ANY NAUSEA SHE STATES YES AND CHOOSES TO BE MEDICATED AT THIS TIME.
--- NOTE | 2024-06-23 15:55 | NUR ---
PT UP IN THE CHAIR AT THIS TIME, EDUCATION PROVIDED R/T MEDICATIONS AND SIDE EFFECTS. SHE IS USING DILAUDID SEVERAL TIMES EACH SHIFT BOWEL TONES ARE ABSENT/HYPO. PT AGREES SHE IS AMBULATING SEVERAL TIMES EACH SHIFT AND WILL TRY TO STRETCH TIMES OF DILAUDID OUT A BIT. FRESH ICE AND HARD CANDY TO BEDSIDE TABLE. PT RETURNS TO THE BED FOR NOW
--- NOTE | 2024-06-23 17:50 | NUR ---
PT UP AMBULATING THE HALLS WITH STAFF JEFF
--- NOTE | 2024-06-23 19:12 | NUR ---
SHIFT REPORT RECEIVED FROM ANGLE RN, PT RESTING IN BED, RESP EVEN AND REG.
--- NOTE | 2024-06-23 20:55 | NUR ---
PATIENT UP TO CHAIR. PRIMARY RN WAS IN THE ROOM. PATIENT REQUESTED TO HAVE NO RINSE SHAMPOO ON HER HAIR. DONE.
--- NOTE | 2024-06-23 21:11 | NUR ---
PATIENT ISBACK IN BED. V/S AND I&O'S COMPLETED. BLOOD SUGAR CHECK DONE.
[2024-06-24] VITALS (11 sets, daily range): BP systolic 114–178; BP diastolic 56–74
--- NOTE | 2024-06-24 00:43 | NUR ---
PT AWAKE AND ALERT, PT REQUESTING PAIN MED FOR ABDOMINAL PAIN 08/26, MED PER DILAUDID 0.5MG IV, PT GIVEN FRESH ICE CHIPS.
--- NOTE | 2024-06-24 01:44 | NUR ---
MYSQL DBA HELP PT INTO HER RECLINING CHAIR.
--- NOTE | 2024-06-24 02:40 | NUR ---
NURSE CALLED TO ROOM, PT REQUESTING TO RETURN TO BED, ASSISTED TO BED, 1PA WITH WALKER, PT DENIES DESIRES FOR ADDITIONAL PAIN MED AT THIS TIME, BACK TO BED, VS DONE AND STABLE, NG TO LIWS, LIGHT GREEN FLUID, RT BP MED GIVEN, PICC LINE PATIENT, WITH GOOD BLOOD RETURN, ACCUCHECK 125.
--- NOTE | 2024-06-24 03:59 | NUR ---
PT REQUESTING PAIN AND NAUSEA, MED WITH DILAUDID 1MG IV AND COMPAZINE 5MG PER REQUEST, PAIN 5/10 INCISIONAL, PT ATTEMPTING TO REST, PICC LINE PATENT, MEASURES 34 CM, NG CONTS TO LIWS
[2024-06-24 06:12] LABS: ANION GAP 5.8 (7-21); BUN/CREATININE RATIO 22.61 (6.0-28.6); CALCIUM 8.3 mg/dL (8.5-10.1); CREATININE, SERUM 0.84 mg/dL (0.55-1.02); MAGNESIUM 1.8 mg/dL (1.8-2.4); PHOSPHORUS, INORGANIC 4.1 mg/dL (2.5-4.9); POTASSIUM 3.8 mmol/L (3.5-5.1)
--- NOTE | 2024-06-24 06:58 | NUR ---
CUT OUT WORKER GOT PT UP TO HER CHAIR. CUT OUT WORKER LEFT PT WITH CALL LIGHT WITHIN REACH.
--- NOTE | 2024-06-24 07:28 | NUR ---
REPORT FROM JACOB YEUNG.
--- NOTE | 2024-06-24 08:32 | NUR ---
MORNING ASSESSMENT IS COMPLETE. PATIENT IS SITTING UP IN BED, REPORTS MILD PERSISTANT NAUSEA, ABDOMINAL PAIN IS 4/10 AND NO PAIN MEDICATIONS REQUESTED AT THIS TIME. NGT FLUSHED WITH 10CC AND IS DRAINING LIGHT YELLOW/GREEN FLUID. MORNING MEDICATIONS GIVEN. BOWEL TONES ARE ACTIVE IN RUQ AND HYPOACTIVE IN OTHER QUADRANTS. TPN IS INFUSING TO BLUE PORT OF PICC LINE. RIGHT PICC LINE FLUSHED WITH 20CC NS AFTER MEDICATIONS. NO OTHER NEEDS AT THIS TIME.
--- NOTE | 2024-06-24 09:15 | NUR ---
PATIENT WAS IN CHAIR FOR THE MORNING, NOW BACK TO BED, SBA FWW. BED BATH GIVEN WITH PRESURGICAL WIPES FOR PICC. CATH CARE DONE. CALL LIGHT IN REACH. NO FURTHER NEEDS AT THIS TIME.
--- NOTE | 2024-06-24 09:38 | NUR ---
VISITED WITH PT WHILE AMBULATING IN HALLWAY. PROVIDED SUPPORTIVE PRESENCE, FACILITATED INTERACTION WITH THERAPY ANIMAL. PROVIDED PRAYER. PT EXPRESSED GRATITUDE.
--- NOTE | 2024-06-24 09:50 | NUR ---
Spoke with pt. Santiago remains. She denies needs.
--- NOTE | 2024-06-24 10:34 | NUR ---
PT CALLED TO ASK FOR PAIN MEDS. ADMINSITERED PRN.
--- NOTE | 2024-06-24 11:26 | NUR ---
PATIENT UP TO CHAIR AFTER WALKING. NG SECUREMENT DEVICE CHANGED, CLEAN GOWN ON, LINENS FRESHENED. PATIENT BACK TO BED. ICE CHIPS AND WARM BLANKET PROVIDED.
--- NOTE | 2024-06-24 12:52 | NUR ---
PATIENT GIVEN 5MG OF COMPAZINE FOR MILD NAUSEA. NGT FLUSHED, IS WORKING WELL.
--- NOTE | 2024-06-24 13:54 | NUR ---
PATIENT IS UP AMBULATING IN HALLWAY.
--- NOTE | 2024-06-24 13:58 | NUR ---
VITAL SIGNS AND INTAKE AND OUTPUT TAKEN AND DOCUMENTED IN THE CHART. PATIENT AMBULATED 3 LAPS ON THE MEDICAL SURGICAL FLOOR. PATIENT TOLERATED WELL WITH NO COMPLAINTS OF DIZZINESS, LIGHT-HEADEDNESS, OR NAUSEA. PATIENT IS NOW BACK IN THE ROOM. BED LINENS CLEANED UP. JACOB VERDUZCO SET UP PATIENT BACK IN THE CHAIR AND RECONNECTED TO NG SUCTION. CALL LIGHT AND PERSONAL BELONGINGS ARE WITHIN REACH.
--- NOTE | 2024-06-24 14:23 | NUR ---
PATIENT GIVEN 1MG OF IV DILAUDID FOR 4/10 ABD PAIN AFTER WALKING MULTIPLE LAPS IN HALLWAY.
--- NOTE | 2024-06-24 14:51 | PATH ---
[facility] [address], [place] [address] Signed SPECIMEN(S): A SUBTOTAL COLON SPECIMEN SOURCE: A. SUBTOTAL COLON CLINICAL HISTORY: Bowel obstruction FINAL PATHOLOGIC DIAGNOSIS: Subtotal colon: - Diverticulosis coli with focal acute diverticulitis and focal pericolonic abscess at site of grossly apparent stricture. - Focal serosal fibrous adhesions. - Portion of benign terminal ileum and ileocecal valve. - Benign appendiceal orifice with absent vermiform appendix. - Portion of benign omentum. JVR:sonal MICROSCOPIC EXAMINATION: Histologic sections of all submitted blocks are examined by light microscopy. These findings, together with the gross examination, support the pathologic diagnosis. GROSS DESCRIPTION: The specimen, labeled and designated "Jess Quintanilla, subtotal:," is received in formalin and consists of a 78 cm in length by 3.2 to 10.2 cm in circumference segment of colon with a 3.5 cm in length by 6 cm in circumference segment of ileum. No appendix is identified. There is moderate amount of attached yellow lobulated pericolonic fat and omentum. The distal colon is marked by a stitch. The serosal surface is jameson-pink with diffuse adhesions. The mucosa is jameson-pink and filled with a moderate amount of stool. There are intact mucosal folds with multiple diverticuli primarily in the descending colon/sigmoid colon. The distal 8.5 cm of the colon has increased fibrous tissue with stricture. There are diverticuli throughout the area of stricture, but no discrete masses or lesions. There are no polyps present. The attached pericolonic fat is unremarkable. No lymph node candidates are identified. Residential Energy Auditor sections are submitted as follows: Cassette Summary: PATIENT NAME: BRIGID QUINTANILLA PATHOLOGY DATE OF : 50 REPORT #: [id number] PHYSICIAN: EAGLE PONCE PCP: JASMYN RAMOS PA-C REPORT IS CONFIDENTIAL AND NOT TO BE RELEASED WITHOUT AUTHORIZATION [facility] [address], [place] [address] Signed (A1) proximal margin (A2) distal margin (A3) appendiceal orifice (A4) ileocecal valve (A5) area of stricture with diverticuli (A6) diverticuli from descending colon/sigmoid colon (A7) omentum AA (under the direct supervision of a pathologist) The Gross Description was prepared using a voice recognition system. The report was reviewed for accuracy; however, sound-alike word errors, addition and/or deletions may occur. If there is any question about this report, please contact Client Services. PERFORMING LABORATORY: Technical component was performed by [facility], [address] [place] [id number] (CLIA# [id number]). Professional interpretation was performed by [facility] - [facility], [address] [place] [id number] (CLIA#: [id number]). Diagnostician: Ascencion Greco MD Pathologist Electronically Signed 06/24/2024 Copies: ~ PATIENT NAME: BRIGID QUINTANILLA PATHOLOGY DATE OF : 50 REPORT #: [id number] PHYSICIAN: EAGLE PONCE PCP: JASMYN RAMOS PA-C REPORT IS CONFIDENTIAL AND NOT TO BE RELEASED WITHOUT AUTHORIZATION
[2024-06-24] MEDS ORDERED: POTASSIUM CHLORIDE 20 MEQ in DEXTROSE 5% 250 ML IV ONE (15:00)
[2024-06-24] MEDS ORDERED: MAGNESIUM SULFATE 2 GM/50 ML BAG IV ONE (15:00)
--- NOTE | 2024-06-24 15:23 | NUR ---
IV MAGNESIUM INFUSING FOR 1 HOUR.
--- NOTE | 2024-06-24 16:42 | NUR ---
IV POTASSIUM INFUSING FOR 2 HOURS TO RED PORT. IV TPN INFUSING TO BLUE PORT. PATIENT GIVEN 10MG OF COMPAZINE. NGT FILTER CHANGED, NGT FLUSHED. PATIENT IS SITTING UP TO CHAIR, DENIES OTHER NEEDS AT THIS TIME.
--- NOTE | 2024-06-24 17:22 | NUR ---
NEW TPN AND LIPIDS INFUSING. PATIENT IS RESTING IN BED.
--- NOTE | 2024-06-24 18:02 | NUR ---
PATIENT IN BED RESTING AT THIS TIME. VITALS AND I&O'S DONE AND CHARTED. PATIENT REQUESTING PAIN MEDS, RN NOTIFIED. CALL LIGHT IN REACH. NO FURTHER NEEDS AT THIS TIME.
--- NOTE | 2024-06-24 18:17 | NUR ---
PATIENT GIVEN 1MG OF IV DILAUDID FOR 6/10 ABD PAIN. NO OTHER NEEDS AT THIS TIME.
--- NOTE | 2024-06-24 19:26 | NUR ---
RECEIVED REPORT FROM DAY SHIFT RN. PATIENT IS RESTING IN BED. NG TO LWIS. VASQUEZ IN PLACE. IV INFUSING PER ORDER. PATIENT DENIES ANY NEEDS. CALL LIGHT IN REACH.
--- NOTE | 2024-06-24 20:29 | NUR ---
PATIENT ASSESMENT COMPLETED. VITALS TAKE AND RECORDED. VASQUEZ EMPTIED. NG HAS MINIMAL DRAINAGE IN THE CANISTER. INTAKE AND OUTPUT RECORDED. PATIENTS IV INFUSING PER ORDER. PATIENT RATES PAIN AT A 6/10, PRN MEDS GIVEN PER ORDER. PATIENT REPORTS NAUSEA, PRN MEDS GIVEN PER ORDER. IV INFUSING PER ORDER. PATIENT HAS NG TUBE IN PLACE AND IS CONNECTED TO LWIS. PATIENT REFUSING SCDS AT THIS TIME. PATIENT EDUCATED ON USE OF SCDS. PATIENT VERBALIZES UNDERSTANDING AND CONTINUES TO REFUSE. PATIENT HAS PICC IN RUE AND BLUE PORT HAS TPN AND LIPIDS INFUSING PER ORDER. RED PORT OF PICC IS HEP LOCKED PER ORDER. PATIENT IS AAOX4. PATIENT IS ON RA. PATIENT DENIES ANY FURTHER NEEDS AT THIS TIME. CALL LIGHT IN REACH.
--- NOTE | 2024-06-24 22:10 | NUR ---
PATIENT IS RESTING IN BED WITH EYES CLSOED, RR 16. CALL LIGHT IN REACH. IV INFUSING PER ORDER. NAD NOTED. CALL LIGHT IN REACH.
--- NOTE | 2024-06-24 23:24 | NUR ---
PATIENT UP IN RECLINER. PATIENTS NG TO LWIS. IV INFUSING PER ORDER. PATIENT REPORTS 6/10 ABD PAIN, PRN MEDS GIVEN PER ORDER. PATIENT REPORTS NAUSEA, PRN MEDS GIVEN PER ORDER. PATIENT DENIES ANY FURTHER NEEDS. CALL LIGHT IN REACH.
[2024-06-25] VITALS (9 sets, daily range): BP systolic 125–158; BP diastolic 56–75
--- NOTE | 2024-06-25 | NUR ---
PATIENT IS RESTING IN RECLINER WITH EYES CLOSED, RR 15. NAD NOTED. CALL LIGHT IN REACH.
--- NOTE | 2024-06-25 01:01 | NUR ---
PATIENT CALLED WANTING TO GO BACK TO BED. DONE. NO OTHER NEEDS AT THIS TIME. CALL LIGHT IN REACH.
--- NOTE | 2024-06-25 02:32 | NUR ---
PATIENT IS RESTING IN BED. VITALS TAKEN AND RECORDED. BS CHECKED. PATIENTS SCHEDULED MEDS GIVEN PER ORDER. PATIENT RATES PAIN AT A 6/10, PRN PAIN MEDICATION GIVEN PER ORDER. PATIENT REPORTS NAUSEA, PRN NAUSEA MEDICATION GIVEN PER ORDER. PATIENTS NG TO LWIS. IV INFUSING PER ORDER. PATIENT ALEXIS ANY FURTHER NEEDS. CALL LIGHT IN REACH.
--- NOTE | 2024-06-25 04:05 | NUR ---
PATIENT IS RESTING IN BED WATCHING TV. PATIENT REPORTS 6/10 PAIN IN HER ABD. PATIENT EDUCATED ON NEXT PAIN MEDICATION DUE. PATIENT VERBALIZES UNDERSTANDING. NO FURTHER NEEDS NOTED. CALL LIGHT IN REACH.
--- NOTE | 2024-06-25 04:44 | NUR ---
PATIENT REPOSITIONED IN BED. PATIENT ASSISTED TO REPOSITION. PATIENTS VITALS TAKEN AND RECORDED. VASQUEZ EMPTIED. INTAKE AND OUTPUT RECORDED. PATIENTS LABS DRAWN FROM PICC PER PROTOCOL. PATIENT RATES PAIN AT A 6/10, PRN MEDICATION GIVEN PER ORDER. PATIENT REPORTS NAUSEA, PRN MEDS GIVEN PER ORDER. PATIENTS NG TO LWIS. IV INFUSING PER ORDER. PATIENT IS ON RA. PATIENT DENIES ANY FURTHER NEEDS. CALL LIGHT IN REACH. PATIENT IS [id number].
[2024-06-25 04:48] LABS: ANION GAP 5.9 (7-21); BUN/CREATININE RATIO 25.28 (6.0-28.6); CALCIUM 8.1 mg/dL (8.5-10.1); CREATININE, SERUM 0.87 mg/dL (0.55-1.02); PHOSPHORUS, INORGANIC 4.5 mg/dL (2.5-4.9); POTASSIUM 3.9 mmol/L (3.5-5.1)
--- NOTE | 2024-06-25 06:02 | NUR ---
PATIENT IS RESTING IN BED WITH EYES CLOSED, CPOS READINGS ARE WNL. NAD NOTED. IV INFUSING PER ORDER. CALL LIGHT IN REACH.
[2024-06-25] MEDS ORDERED: FUROSEMIDE 20 MG/2 ML VIAL IV ONE (07:00)
--- NOTE | 2024-06-25 07:40 | NUR ---
REPORT RECIEVED FROM JACOB CARL. PT IN BED.
[2024-06-25] MEDS ORDERED: Methylnaltrexone Bromide 12 MG/0.6 ML VIAL SUB-Q ONE (08:15)
--- NOTE | 2024-06-25 08:24 | NUR ---
PATIENT IN CHAIR AT THIS TIME. GLOVE TAGGER ASSISTED PATIENT IN MOVING FROM BED TO HER CHAIR. CALL LIGHT PLACED WITHIN REACH, NO FURTHER NEEDS AT THIS TIME.
--- NOTE | 2024-06-25 08:35 | NUR ---
PATIENT IN BED AT THIS TIME. [employer] DEVELOPER WENT INTO PATIENTS ROOM FOR HOURLY ROUNDS. CALL LIGHT WITHIN REACH, NO FURTHER NEEDS AT THIS TIME.
--- NOTE | 2024-06-25 08:55 | NUR ---
PT SITTING IN CHAIR. NG DC'D PER MD ORDER. NG TUBE INTACT. PT DENIES ANY COMPLAINTS OR CONCERNS AFTER NG WAS DC'D. VASQUEZ DC'D. 10 ML REMOVED FROM VASQUEZ BALLOON. 800 ML OUTPUT FROM VASQUEZ.
--- NOTE | 2024-06-25 09:10 | NUR ---
PT TO BR POST VASQUEZ DC. PT VOIDED 100 ML OF CLEAR YELLOW URINE. PT UP TO AMBULATE IN HALLS. WALKS ONE LAP AROUND THE MED SURG FLOOR SBA W THIS SN. PT BACK TO BR. PT ABLE TO VOID ANOTHER 100 ML OF CLEAR YELLOW URINE. PT NOW BACK TO BED. RATING PAIN 3/10. PT REQ PAIN MEDICATION AT THIS TIME. PT DENIES ANY OTHER NEEDS AT THIS TIME, CALL LIGHT IN REACH.
--- NOTE | 2024-06-25 09:36 | NUR ---
PT SITTING UP IN CHAIR. ADMINISNTERED MORNING MEDS WITH RN STUDENT LLOYD. PT EDUCATION COMPLETE. REMOVED NG TUBE AND VASQUEZ PER DR ORDER. PT TOLERATED BOTH AND WELL AND STATED IT WAS NICE TO HAVE THE NG OUT. SISTER IN ROOM. PT UP TO RESTROOM.
--- NOTE | 2024-06-25 10:25 | NUR ---
PATIENT IN BED AT THIS TIME. MOLDER SWEEP ASSISTED PATIENT TO BATHROOM FROM CHAIR AND THEN BACK TO BED. CALL LIGHT WITHIN REACH, NO FURTHER NEEDS AT THIS TIME.
--- NOTE | 2024-06-25 11:50 | NUR ---
Pt getting ready to get in the shower. She denies needs.
--- NOTE | 2024-06-25 13:25 | NUR ---
PT C/O 07/29 PAIN. STATES "IT'S MY LEGS". PRIMARY RN NOTIFIED THAT PT REQ MEDICATION FOR RESTLESS LEGS.
--- NOTE | 2024-06-25 13:28 | NUR ---
PT ASSISTED W/ DRESSING AFTER SHOWER. PT UP TO CHAIR. VITALS COMPLETE. ABOUT 100 ML OF FLUID FROM ICE CHIPS ACCOUNTED FOR. WARM BLANKET PROVIDED. MD IN ROOM. DENIES ANY FURTHER NEEDS. CALL LIGHT IN REACH
--- NOTE | 2024-06-25 14:35 | NUR ---
TPN DAY 6. PATIENT REMAINS NPO. TPN STILL PROVIDING AN AVERAGE OF 2,188 CALORIES AND 100 GM PROTEIN WITH 500 ML 20% LIPIDS 3 DAYS/WEEK. BLOOD SUGARS HAVE ALL BEEN <150. AWAITING GI FXN BEFORE DIET IS INITIATED. NO NUTRITION INTERVENTION NEEDED AT THIS TIME. RD WILL FOLLOW UP IN 3-5 DAYS.
[2024-06-25] MEDS ORDERED: ROPINIROLE HCL 1 MG TAB PO SCH ×2 (14:45→21:00)
--- NOTE | 2024-06-25 14:56 | NUR ---
PATIENT IN BED AT THIS TIME. FLEX O WRITER OPERATOR ASSISTED PATIENT IN WALKING 2 LAPS AROUND HALLS. CALL LIGHT WITHIN REACH, NO FURHTER NEEDS AT THIS TIME.
--- NOTE | 2024-06-25 14:57 | NUR ---
PATIENT IN BED AT THIS TIME. COMMERCIAL RETOUCHER ASSISTED PATIENT IN GETTING READY FOR SHOWER. PATIENT WAS ABLE TO SHOWER INDEPENDENTLY. CALL LIGHT WITHIN REACH, NO FURTHER NEEDS AT THIS TIME.
[2024-06-25] MEDS ORDERED: IBUPROFEN 600 MG TAB PO PRN (16:30)
--- NOTE | 2024-06-25 19:21 | NUR ---
PATIENT IN BED. WATER TENDER CHARTED VITALS AND I&O'S. CALL LIGHT WITHIN REACH, NO FURTHER NEEDS AT THIS TIME.
--- NOTE | 2024-06-25 19:30 | NUR ---
RECEIVED REPORT FROM DAY SHIFT RN. PATIENT IS RESTING IN BED. PATIENT DENIES ANY PAIN OR NAUSEA. PATIENT DENIES ANY NEEDS. CALL LIGHT IN REACH.
--- NOTE | 2024-06-25 20:10 | NUR ---
PATIENT ASSEMENT COMPLETED. VITALS TAKEN AND RECORDED. PATIENT UP TO BR TO VOID. PATIENT HAD SMALL LOOSE AND PASSED GAS. PATIENT IS BACK IN BED RESTING. INTAKE AND OUTPUT RECORDED. PATIENT DENIES ANY PAIN OR NAUSEA. PM MEDS GIVEN PER ORDER. TPN INFUSING PER ORDER. PATIENT DENIES ANY FURTHER NEEDS. CALL LIGHT IN REACH. PATIENT IND IN THE ROOM. PATIENT IS ON RA. AAOX4.
--- NOTE | 2024-06-25 21:05 | NUR ---
CALL LIGHT ANSWERED, pt PROVIDED WITH ASSISTANCE WITH BLANKETS. NO ADDITIONAL NEEDS, CALL LIGHT IN REACH.
--- NOTE | 2024-06-25 21:42 | NUR ---
PATIENT REQUESTED NEW BED STATING "THIS ONE IS AWFUL". NEW BED MOVED INTO ROOM. PATIENT REQUESTING ADDITIONAL DOSE OF REQUIP. PLACED CALL TO MD AND RECEIVED VERBAL ORDERS FOR ABOVE MEDICATION. VERIFIED ORDER USING THE REPEAT BACK METHOD.
[2024-06-25] MEDS ORDERED: LIDOCAINE HCL 4% 1 EACH PATCH TD SCH (21:45)
[2024-06-25] MEDS ORDERED: ROPINIROLE HCL 1 MG TAB PO ONE (21:45)
--- NOTE | 2024-06-25 22:15 | NUR ---
PATIENT ASLEEP IN RECLINER WHEN THIS RN ENTERED ROOM. PATIENT WOKE BY THIS RN AND APPLIED LIDOCAINE PATCH TO RIGHT KNEE PER ORDER. PATIENT GIVEN ON TIME DOSE OF RESTLESS LEG MEDICATION PER ORDER. PATIENT DENIES ANY PAIN OR NAUSEA. PATIENTS IV INFUSING PER ORDER. PATIENT MOVED FROM RECLINER TO BED. WARM BLANKET PROVIDED PATIENT DENIES ANY FURTHER NEEDS. CALL LIGHT IN REACH.
[2024-06-26] VITALS (8 sets, daily range): BP systolic 113–158; BP diastolic 55–69
--- NOTE | 2024-06-26 00:25 | NUR ---
PATIENT IS RESTING IN BED ON BACK, RR 16. TPN INFUSING PER ORDER. NAD NOTED. CALL LIGHT IN REACH.
--- NOTE | 2024-06-26 01:16 | NUR ---
PATIENT UP TO BR AND ABLE TO VOID AND HAVE SMALL GELATINOUS BM. PATIENT IS BACK IN BED RESTING. PATIENTS VITALS TAKEN AND RECORDED. PATIENTS SCHEDULED MEDS GIVEN PER ORDER. PATIENT REPORTS 6/10 PAIN IN HER RIGHT KNEE AND HIP, PRN MEDICATION GIVEN PER ORDER. PATIENTS TPN INFUSING PER ORDER. PATIENT DENIES ANY FURTHER NEEDS. CALL LIGHT IN REACH.
--- NOTE | 2024-06-26 02:34 | NUR ---
PATIENT IS RESTING IN BED WITH EYES CLOSED, RR 16. CALL LIGHT IN REACH. TPN INFUSING PER ORDER.
--- NOTE | 2024-06-26 03:41 | NUR ---
PATIENTS PICC LINE DRESSINGN CHANGED. PATIENTS PICC LINE FLUSHED AND HAS BLOOD RETURN IN BOTH LUMENS. PATIENT DENIES ANY PAIN OR NAUSEA. PATIENT DENIES ANY FURTHER NEEDS. CALL LIGHT IN REACH. TPN INFUSING PER ORDER.
--- NOTE | 2024-06-26 05:22 | NUR ---
PATIENT IS RESTING IN BED. PATIENTS BLOOD DRAWN FROM RUE PICC LINE PER PROTOCL. VITALS TAKEN AND RECORDED. INTAKE AND OUTPUT RECORDED. PATIENT DENIES ANY PAIN OR NAUSEA. PATIENT DENIES ANY NEEDS. TPN INFUSING PER ORDER. PATIENT DENIES ANY FURTHER NEEDS. CALL LIGHT IN REACH.
[2024-06-26 05:24] LABS: BASOPHILS 0.3 % (0-2); EOSINOPHILS 2.9 % (0-6); HEMATOCRIT 28.4 % (35.0-50.0); HEMOGLOBIN 9.4 g/dL (12.0-18.0); LYMPHOCYTES 8.7 % (24-44); MONOCYTES 6.3 % (0-12); NEUTROPHILS 81.8 % (39-80); PLATELET COUNT 310 K/uL (140-440); RBC 3.22 M/ul (4.3-5.7); RDW 14.2 (10.5-15.0)
[2024-06-26 05:33] LABS: ANION GAP 7.8 (7-21); BUN/CREATININE RATIO 25.25 (6.0-28.6); CALCIUM 8.5 mg/dL (8.5-10.1); CREATININE, SERUM 0.99 mg/dL (0.55-1.02); POTASSIUM 3.8 mmol/L (3.5-5.1)
[2024-06-26] MEDS ORDERED: HYDROCODONE/ACETA 5/325 TAB PO PRN (06:30)
[2024-06-26] MEDS ORDERED: ACETAMINOPHEN 325 MG TAB PO PRN (06:30)
--- NOTE | 2024-06-26 06:48 | NUR ---
PATIENT UP TO BR. PATIENTS TPN TITRATED TO 41.9ML AN HR. PATIENT AMBULATING IN ROOM. PATIENT DENIES ANY NEEDS. CALL LIGHT IN REACH.
[2024-06-26] MEDS ORDERED: LEVOTHYROXINE SODIUM 100 MCG TAB PO SCH (07:00)
--- NOTE | 2024-06-26 07:40 | NUR ---
REPORT RECEIVED FROM [facility]. PATIENT ASSISTED WITH GETTING BACK TO RECLINER. PATIENT ASSISTED WITH WIPING AFTER HAVING A BOWEL MOVEMENT. PATIENT DENIES ANY NEEDS AT THIS TIME. TPN CONTINUES, PICC WNL. NO FURTHER NEEDS AT THIS TIME. CALL LIGHT WITHIN REACH.
--- NOTE | 2024-06-26 08:10 | NUR ---
PATIENT RESTING IN RECLINER. TPN INFUSING WITH NO ISSUES OR CONCERNS. PICC WNL. ABD WITH HYPOACTIVE BOWEL TONES, MIDLINE INCISION REMAINS WELL APPROXIMATED. NO NOTED S/SX OF INFECTION. PATIENT DENIES ANY NAUSEA OR PAIN AT THIS TIME. LUNGS CTA. PATIENT TAKING LIQUIDS WELL. NO FURTHER NEEDS CALL LIGHT WITHIN REACH.
[2024-06-26] MEDS ORDERED: FUROSEMIDE 20 MG TAB PO SCH (09:00)
[2024-06-26] MEDS ORDERED: AMLODIPINE BESYLATE 5 MG TAB PO SCH (09:00)
[2024-06-26] MEDS ORDERED: PANTOPRAZOLE SODIUM 40 MG TABEC PO SCH (09:00)
[2024-06-26] MEDS ORDERED: lisinopriL 20 MG TAB PO SCH (09:00)
[2024-06-26] MEDS ORDERED: SERTRALINE HCL 100 MG TAB PO SCH (09:00)
[2024-06-26] MEDS ORDERED: LIDOCAINE PATCH REMOVAL 1 EA TD ONE (09:00)
--- NOTE | 2024-06-26 09:01 | NUR ---
PATIENT IN BED AT THIS TIME. GEOSPATIAL IMAGERY INTELLIGENCE ANALYST WENT INTO PATIENTS ROOM FOR HOURLY ROUNDS AND BLOODSUGAR CHECK. CALL LIGHT WITHIN REACH, NO FURTHER NEEDS AT THIS TIME.
--- NOTE | 2024-06-26 10:40 | NUR ---
IN TO ROUND ON PATIENT. PATIENT RESTING IN RECLINER. DENIES ANY NEEDS AT THIS TIME. CALL LIGHT WITHIN REACH.
--- NOTE | 2024-06-26 12:05 | NUR ---
RN NOTIFIED THAT PATIENT MIDLINE INCISION WAS MISSING A STAPLE AND THAT A STERI STRIP WAS APPLIED TO THE AREA. RN IN ROOM TO ASSESS MIDLINE INCISION. NOTED THAT INCISION REMAINS APPROXIMATED WITH A STERI STRIP IN PLACE WHERE IT APPEARS A STAPLE IS MISSING. NO NOTED DRAINAGE AT THIS TIME. PATIENT RESTING IN BED WITH CALL LIGHT WITHIN REACH.
--- NOTE | 2024-06-26 12:50 | NUR ---
TNP STOPPED PER ORDERS. PICC LINE WNL REMAINS WNL. PULLS BLOOD AND FLUSHED WITH HEPARIN PER AM ORDERS. PATIENT FINSIHED LUNCH. REPORTS SHE FEELS "GREAT". DENEIS ANY NAUSEA OR PAIN AT THIS TIME. MIDLINE INSISION REMAINS APPROXIMATED. NO NOTED DRAINAGE TO WHERE STERISTRIP WAS APPLIED. CALL LIGHT WITHIN REACH.
--- NOTE | 2024-06-26 13:53 | NUR ---
PATIENT RESTING IN RECLINER. DENIES ANY NEEDS AT THIS TIME. CALL LIGHT WITHIN REACH.
--- NOTE | 2024-06-26 14:20 | NUR ---
PATIENT IS UP TO TAKE A SHOWER. ABDOMINAL INCISION IS BRIGHT RED, LEAKING IN MIDDLE OF ABDOMEN, STERI-STRIP IN PLACE TO REINFORCE INCISION. DISCUSSED WITH DR. KWON THAT PATIENT HAD WBC OF 12.9 AND HAS NOT HAD ANTIBIOTIC SINCE 06/19/24.
--- NOTE | 2024-06-26 14:24 | NUR ---
MD VASQUEZ CONTACTED REGUARDING PATIENT INCISION. WILL BE TO THE UNIT TO ASSESS INCISION.
--- NOTE | 2024-06-26 14:39 | NUR ---
PATIENT IN BED AT THIS TIME. PREMIUM SERVICE REPRESENTATIVE ASSISTED PATIENT IN GETTING READY FOR A SHOWER. PREMIUM SERVICE REPRESENTATIVE WENT TO WRAP PATIENTS LINE AND NOTICED THAT SHE WAS HAVING DRAINAGE FROM THE ABDOMINAL INCISION. PREMIUM SERVICE REPRESENTATIVE LET RN KNOW ABOUT DRAINAGE. CALL LIGHT WITHIN REACH, NO FURTHER NEEDS AT THIS TIME.
--- NOTE | 2024-06-26 14:40 | NUR ---
Visited with Des. She is feeling much better. Discusses her home an family. Ready for dc whenever is ready to release her. Spouse and sister will help her. She denies any needs.
--- NOTE | 2024-06-26 15:14 | NUR ---
PATIENT C/O NECK PAIN. PRN ADMINSTERED. NO FURTHER NEEDS. MIDLINE INCISION WITH NOT ACTIVE DRAINAGE AT THIS TIME.
--- NOTE | 2024-06-26 16:30 | NUR ---
PATIENT UP WALKING AROUND HALLS WITH CANE. TOLLERATED WELL.
[2024-06-26] MEDS ORDERED: ATORVASTATIN 40 MG TAB PO SCH (17:00)
--- NOTE | 2024-06-26 17:29 | NUR ---
DR. VASQUEZ IN TO LOOK AT PATIENT'S ABDOMINAL INCISION. NO ORDERS.
--- NOTE | 2024-06-26 17:45 | NUR ---
PATIENT RESTING IN RECLINER WATCHING TV. DENIES ANY PAIN AT THIS TIME. INCISION REMAINS WELL APPROXIMATED. NO NOTED DRAINAGE AT THIS TIME. SCHEDULED MEDICATION ADMINSTERED. NO FURTHER NEEDS CALL LIGHT WITHIN REACH.
--- NOTE | 2024-06-26 18:30 | NUR ---
PATIENT RESTING IN RECLINER DENIES ANY NEEDS AT THIS TIME. CALL LIGHT WITHIN REACH.
--- NOTE | 2024-06-26 19:52 | NUR ---
Received report from JACOB Escobedo. Pt resting in bed, complains of 12/26 to RLE. Pt requests HS dose of requip now for RLS. Pt medicated with requip and PRN Grayson. No further needs identified. Call light within reach.
--- NOTE | 2024-06-26 20:15 | NUR ---
PT UP AMBULATING IN ROOM, ASSISTED BACK TO BED FOR ASSESSMENT. VSS. REPORTS RLE PAIN, STILL 01/26. LSC. HRR. BTA, ABD MILDLY DISTENDED, SOFT, NON-TENDER. REPORTS BM TODAY AND PASSING FLATUS. DENIES NAUSEA, TOLERATING LIQUID DIET. MIDLINE ABD INC TOWNSHIP CLERK W/ BRIDGET PRESENT. SMALL AREA TO INC W/ DRY CRUSTY DRNG AND A STERI STRIP IN PLACE. VOIDS WNL BUT HAS DISPOSIBLE BRIEF IN PLACE. DOUBLE LUMEN PICC TO MANINDER VALLADARESG CDI, BOTH LUMENS TAPED DOWN PER PT REQUEST-FEELS LIKE THEY ARE PULLING. BOTH LUMENS HEP LOCKED PER EMAR. SCD'S OFF R/T PT IND W/ AMBULATION. CALL LIGHT WITHIN REACH.
[2024-06-26] MEDS ORDERED: LIDOCAINE PATCH REMOVAL 1 EA TD SCH (21:00)
[2024-06-26] MEDS ORDERED: TRAZODONE HCL 50 MG TAB PO SCH (21:00)
--- NOTE | 2024-06-26 22:45 | NUR ---
PT SLEEPING SOUNDLY-APPEARS COMFORTABLE. CALL LIGHT WITHIN REACH.
--- NOTE | 2024-06-27 00:57 | NUR ---
SLEEPING SOUNDLY. APPEARS COMFORTABLE. CALL LIGHT WITHIN REACH.
--- NOTE | 2024-06-27 03:44 | NUR ---
PT AWAKE, DENIES NEEDS.
[2024-06-27 05:22] VITALS: BP 146/79
[2024-06-27 05:30] LABS: BASOPHILS 0.5 % (0-2); EOSINOPHILS 2.6 % (0-6); HEMATOCRIT 30.2 % (35.0-50.0); HEMOGLOBIN 9.9 g/dL (12.0-18.0); LYMPHOCYTES 12.3 % (24-44); MCH 28.9 (27-36); MCHC 32.9 g/dl (30-36); MCV 87.9 fl (81-99); MONOCYTES 5.9 % (0-12); NEUTROPHILS 78.7 % (39-80); PLATELET COUNT 371 K/uL (140-440); RBC 3.43 M/ul (4.3-5.7); RDW 14.5 (10.5-15.0)
--- NOTE | 2024-06-27 05:30 | NUR ---
PT AWAKE, AMBULATING IN ROOM. DENIES NEEDS. LABS DRAWN FROM MANINDER PICC LINE W/O DIFFICULTY. VSS. MIDLINE ABD INC UNCHANGED, SMALL AREA W/ DRY DRNG AND STERI STRIP NOTED.
[2024-06-27 05:44] LABS: ANION GAP 11.2 (7-21); BUN/CREATININE RATIO 17.14 (6.0-28.6); CALCIUM 8.8 mg/dL (8.5-10.1); CREATININE, SERUM 1.05 mg/dL (0.55-1.02); POTASSIUM 4.2 mmol/L (3.5-5.1)
[2024-06-27 05:55] VITALS: BP 146/79
[2024-06-27] MEDS ORDERED: ondansetron HCL 4 MG/2 ML VIAL PO PRN (06:00)
[2024-06-27] MEDS ORDERED: PROCHLORPERAZINE EDISYLATE 10 MG/2 ML VIAL IV PRN (06:00)
[2024-06-27] MEDS ORDERED: OXYCODONE HCL 5 MG TAB PO PRN (06:30)
--- NOTE | 2024-06-27 06:41 | NUR ---
PLACED ORDERS FOR EVERY OTHER STAPLE REMOVAL AND PICC LINE D/C. EVERY OTHER STAPLE REMOVED AND INC CLEANSED W/ WOUND CLEANSER. INC LEFT NEW ORDER CLERK. MANINDER PICC LINE DC'D INTACT, MEASURED AT 44CM. PRESSURE DRSG PLACED. PT TOLERATED WELL.
--- NOTE | 2024-06-27 07:19 | DS ---
[facility] [address], [place] [address] Signed ADMISSION DATE: 06/15/2024 DISCHARGE DATE: 06/27/2024 FINAL DIAGNOSIS: Large bowel obstruction from diverticular abscess and scarring. PROCEDURE: Subtotal colectomy with [id number] antiperistaltic ileocolonic anastomosis. 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 She has had trouble for over a year with crampy abdominal pain, particularly towards the left lower quadrant. She said in the last couple of weeks it got really bad. She had vomited over 10 times in one day. She finally came to the emergency room for evaluation. Initially, she thought she had no prior colonoscopy. We finally obtained some records and she did have a colonoscopy with Dr. Darling in 2009. She thinks maybe he took out a hyperplastic polyp. She finally recalled that she does have some diverticulosis. In the office notes, it mentioned that she probably came through an episode of diverticulitis, but she did not take any antibiotics. In our emergency room, she had rather profound diffuse abdominal distention with diffuse tympany, but no peritonitis and nontender. White count was borderline and the CT scan showed her transition point in the distal descending colon with some diverticulosis in the colon, but no metastatic disease. She was also in renal failure. I have been asked to admit her as a general surgeon on-call. HOSPITAL COURSE: Des was admitted as above and treated with NG tube decompression and IV fluids. After a couple of days, her renal failure resolved. We did consult the Medical Service as well. I took her to surgery on 06/18/2024 for a subtotal colectomy with a [id number] anti-peristaltic anastomosis from the terminal ileum over to the sigmoid colon. When we cut the bowel opened on the back table, we found the stricture and looked more like scar tissue rather than cancer. The rest of the colon proximal to that lesion was unremarkable. The pathology came back again with diverticular disease with an abscess and scar tissue. It has taken Des nine days now to get through the postop period. She was using quite a bit of Dilaudid, and I think that was resulting in her ileus as well. We finally got her to discontinue the Dilaudid and use her ibuprofen. She is now on a full liquid diet and had several bowel movements. She is passing gas. Her abdomen is obese, but it is completely soft and nontender. Her white blood cell count has bounced above and below normal several times off antibiotics. She does have a PICC line and we had given her TPN. She had a little serous drainage from the epigastric area of her incision. Otherwise, the incision seems to be fine. No Electronically Signed By: GERÁMN VASQUEZ MD 06/27/24 0719 PATIENT NAME: DES QUINTANILLA DISCHARGE SUMMARY DATE OF : 50 REPORT #: [id number] PHYSICIAN: GERMÁN VASQUEZ MD PCP: BRIANA RAMOS PA-C REPORT IS CONFIDENTIAL AND NOT TO BE RELEASED WITHOUT AUTHORIZATION [address] [address] Signed other obvious source for any infection. At this point, she is doing much better. She is able to perform her activities of daily living. She is anxious to go home. DISCHARGE PLANS AND MEDICATIONS: Des is going to be discharged to home with a small prescription for oxycodone immediate release 10 mg tablets one tablet p.o. q.8 hours p.r.n. for severe postoperative pain, dispense 10 tablets with no refills. She will use her ibuprofen as always for [id number] postoperative pain. She is going to continue all her chronic medications at home as she has here in the hospital. She does not like hydrochlorothiazide because it makes her urinate all day long and it is hard to get out of the house. She likes Lasix because it wears off after 6 hours and she can get out of the house. She is going to discuss that with her primary care provider. We are going to send her with Bactrim DS one p.o. b.i.d. for five days. We will dispense 10 tablets with no refills. We are going to remove every other staple. We will remove the PICC line before discharge. I have asked her to continue her activities of daily living, but no heavy pushing, pulling, or lifting over about 20 pounds. She can shower and bathe as usual. I have asked her to advance to a regular diet, but all the food should be cooked and somewhat soft. We are going to have her back in the office in about a week for followup, and we will remove the rest of the daiana at that time. She is going to follow up with her primary care provider in 2-4 weeks and discuss the hydrochlorothiazide versus the Lasix. She has expressed understanding, agrees with the above plan. Germán Vasquez MD ALB/MODL /[id number] cc: Patient's chart MD Briana Dodd PA-C Copies: GERMÁN VASQUEZ MD Electronically Signed By: GERMÁN VASQUEZ MD 06/27/24 0719 PATIENT NAME: DES QUINTANILLA DISCHARGE SUMMARY DATE OF : 50 REPORT #: [id number] PHYSICIAN: GERMÁN VASQUEZ MD PCP: BRIANA RAMOS PA-C REPORT IS CONFIDENTIAL AND NOT TO BE RELEASED WITHOUT AUTHORIZATION [address] [place], [place] [address] Signed BRIANA RAMOS PA-C ~ Electronically Signed By: GERMÁN VASQUEZ MD 06/27/24 0719 PATIENT NAME: DES QUINTANILLA DISCHARGE SUMMARY DATE OF : 50 REPORT #: [id number] PHYSICIAN: GERMÁN VASQUEZ MD PCP: BRIANA RAMOS PA-C REPORT IS CONFIDENTIAL AND NOT TO BE RELEASED WITHOUT AUTHORIZATION
--- NOTE | 2024-06-27 07:29 | NUR ---
REPORT RECEIVED FROM MACHINE TANK OPERATOR RN. PATIENT AWAKE UP IN BATHROOM GETTING READY FOR THE DAY. MIDLINE INCISIONWELL APPROXIMATED. NOT NOTED DRAINAGE FROM SITE AT THIS TIME. PREVIOUS PICC LINE SITE WITH GAUZE INTACT AND NO SHADOWING. PATIENT WITH NO COMPLAINATS AT THIS TIME. PATIENT IS EAGER TO DISCHARGE TODAY, REPORTS " DOCTOR SAID I CAN GO HOME TODAY." NO FURTHER NEEDS AT THIS TIME. CALL LIGHT WITHIN REACH.
[2024-06-27] MEDS ORDERED: OXYCODONE HCL E10 MG PO (08:05)
[2024-06-27] MEDS ORDERED: BACTRIM DS TAB1 EACH PO (08:06)
[2024-06-27] MEDS ORDERED: IBU-200200 MG PO (08:06)
[2024-06-27 08:42] VITALS: BP 168/72
--- NOTE | 2024-06-27 08:45 | NUR ---
PATIENT EATING BREAKFAST IN RECLINER. DISCHARGE INSTRUCTIONS COMPLETED. AM MEDICATION ADMINSTERED. VSS. PATIENT JOE WITH ACTIVE BOWEL TONES X 4 QUADRANTS. MIDLINE INCISION WELL APPROXIMATED. NO NOTED DRAINAGE.
[2024-06-27] MEDS ORDERED: TRIMETHOPRIM/SULFAMETHOXAZOLE 1 EA TAB PO SCH (09:00)
--- NOTE | 2024-06-27 09:34 | NUR ---
[facility] FORMER HAND FAXED PATIENTS DISCHARGE SUMMARY TO PCP.
== END 2024-06-27 08:51 | disposition home or self-care (01) | DRG 330 ==
LOC: ED 05:51 → CCU 12:46 → MS 12:46 → CCU 06-18 10:30 → MS 06-19 12:05
PROVIDERS: Family Medicine; Internal Medicine; Student in an Organized Health Care Education/Training Program; Surgery; ADMIT Colon & Rectal Surgery; ATTEND Colon & Rectal Surgery
PROC: 0D9670Z Drainage of Stomach with Drainage Device, Via Natural or Artificial Opening (ICD-10-PCS; 2024-06-15)
PROC: 0DBG0ZZ Excision of Left Large Intestine, Open Approach (ICD-10-PCS; 2024-06-18)
PROC: 02HV33Z Insertion of Infusion Device into Superior Vena Cava, Percutaneous Approach (ICD-10-PCS; 2024-06-18)
PROC: 0DTF0ZZ Resection of Right Large Intestine, Open Approach (ICD-10-PCS; principal; 2024-06-18 11:15)
PROC: 3E0436Z Introduction of Nutritional Substance into Central Vein, Percutaneous Approach (ICD-10-PCS; 2024-06-19)
DX: K57.20 Diverticulitis of large intestine with perforation and abscess without bleeding (principal); K56.699 Other intestinal obstruction unspecified as to partial versus complete obstruction; K56.7 Ileus, unspecified; I10 Essential (primary) hypertension; F32.A Depression, unspecified; E03.9 Hypothyroidism, unspecified; M16.0 Bilateral primary osteoarthritis of hip; E66.9 Obesity, unspecified; E86.0 Dehydration; G25.81 Restless legs syndrome; K21.9 Gastro-esophageal reflux disease without esophagitis; R09.02 Hypoxemia; E87.6 Hypokalemia; T40.2X5A Adverse effect of other opioids, initial encounter; E83.42 Hypomagnesemia; Z68.39 Body mass index [BMI] 39.0-39.9, adult; Z90.49 Acquired absence of other specified parts of digestive tract; Z79.890 Hormone replacement therapy; Z79.1 Long term (current) use of non-steroidal anti-inflammatories (NSAID)
CPT/HCPCS: 00840; 36415; 36569; 36592; 71045; 74018; 74176; 80048; 80053; 80061; 81003; 82378; 83690; 83735; 84100; 84134; 85025; 85610; 85730; 88307; 93005; 93010; 94762; 96374; 96375; 96376; 97116; 97161; 99285-25; A9270; C1751; J0330; J0461; J0696; J0780; J1100; J1160; J1171; J1650; J1720; J1790; J1815; J1885; J1940; J2060; J2250; J2405; J2470; J2704; J2765; J3010; J3475; J3480; J3490; J7030; J7060; J7121